=== PATIENT | female | born 1945 | race Caucasian/White ===

== ENCOUNTER → 2016-07-01 | Outpatient (CLI) | payer BC ==
[~2016-07-01] MED LIST: ASCO100T PO; CALC-348 PO; CHOL200010 PO; CRAN1TAB PO; FLV1; FSM70 PO; MAGN1CAP2 PO; MULTTAB58 PO
[2016-07-01 13:03] LABS: BLOOD UREA NITROGEN 25 mg/dl (7-18); BUN/CREATININE RATIO 33.5 (10-20); CALCIUM 9.2 mg/dl (8.5-10.1); CARBON DIOXIDE 30 mmol/L (21-32); CHLORIDE 104 mmol/L (98-107); CREATININE 0.76 mg/dl (0.60-1.20); GLUCOSE 95 mg/dl (70-99); POTASSIUM 3.8 mmol/L (3.5-5.1); SODIUM 141 mmol/L (136-145)
[2016-07-01 13:07] LABS: CHOLESTEROL 148 mg/dl (0-200); CHOLESTEROL/HDL RATIO 2.3; HDL CHOLESTEROL 64 mg/dl; LDL CHOLESTEROL CALCULATED 70 mg/dl; TRIGLYCERIDES 69 mg/dl (0-150); VERY LOW DENSITY LIPOPROT CALC 14 mg/dl
== END | disposition home or self-care (01) ==
LOC: C.LABPVFM 09:21
PROVIDERS: ATTEND Nurse Practitioner
DX: E78.00 Pure hypercholesterolemia, unspecified (principal); M81.0 Age-related osteoporosis without current pathological fracture

== ENCOUNTER → 2016-09-03 | Outpatient (CLI) | payer BC ==
[~2016-09-03] MED LIST changes: -ASCO100T PO; +ASCO100T4 PO
== END | disposition home or self-care (01) ==
LOC: C.LABPVFM 09:58
PROVIDERS: ATTEND Internal Medicine Rheumatology
DX: E55.9 Vitamin D deficiency, unspecified (principal); E61.8 Deficiency of other specified nutrient elements; M81.0 Age-related osteoporosis without current pathological fracture

== ENCOUNTER → 2016-09-11 | Outpatient (CLI) | payer BC | END | disposition home or self-care (01) | LOC: C.PAPS 10:59 | PROVIDERS: ATTEND Obstetrics & Gynecology | DX: Z12.4 Encounter for screening for malignant neoplasm of cervix (principal) ==

== ENCOUNTER → 2016-09-26 | Outpatient (CLI) | payer BC ==
--- NOTE | 2016-09-26 13:07 | MAMMOGRAPHY REPORT ---
BILATERAL DIGITAL SCREENING MAMMOGRAM WITH CAD: 09/26/2016 CLINICAL HISTORY: Routine screening. Patient has no complaints. TECHNIQUE: Current study was also evaluated with a Computer Aided Detection (CAD) system. Bilatera l CC and MLO views were obtained. COMPARISON: Comparison is made to exams dated: 09/25/2015 mammogram, 09/19/2014 mammogram, 09/15/2013 m ammogram, 08/27/2012 mammogram, 08/27/2011 mammogram, and 08/24/2010 mammogram - [facility]. BREAST COMPOSITION: There are scattered areas of fibroglandular density in both breasts. FINDINGS: No suspicious masses, calcifications, or areas of architectural distortion are noted in e ither breast. There has been no significant interval change compared to prior exams. IMPRESSION: ACR BI-RADS CATEGORY 1: NEGATIVE There is no mammographic evidence of malignancy. A 1 year screening mammogram is recommended. The p atient will receive written notification of the results. Approximately 10% of breast cancers are not detected with mammography. A negative mammographic repor t should not delay biopsy if a clinically suggestive mass is present. Mercedes Mcarthur M.D. ah/:09/26/2016 12:14:55 Air Chief Marshal: Danielle LIM(R)(M), [facility] letter sent: Normal 1/2 BI-RADS Code: ACR BI-RADS Category 1: Negative
== END | disposition home or self-care (01) ==
LOC: C.MAMM 09:09
PROVIDERS: ATTEND Obstetrics & Gynecology
DX: Z12.31 Encounter for screening mammogram for malignant neoplasm of breast (principal)

== ENCOUNTER → 2017-07-01 | Outpatient (CLI) | payer BC ==
[2017-07-01 12:35] LABS: BASO % 0.7 %; BASO ABS # 0.03 K/uL (0-0.2); EOS % 5.6 %; EOS ABS # 0.24 K/uL (0-0.5); HEMATOCRIT 40.1 % (37-47); HEMOGLOBIN 13.7 g/dL (12.0-16.0); LYMPH % 27.6 %; LYMPH ABS # 1.19 K/uL (1.2-3.4); MEAN CELL VOLUME 89.5 fL (80-100); MEAN CORPUSCULAR HEMOGLOBIN 30.6 pg (25-34); MEAN CORPUSCULAR HGB CONC 34.2 g/dl (32-36); MEAN PLATELET VOLUME 11.2 fL (7.4-10.4); MONO % 9.3 %; NEUT % 56.8 %; NEUT ABS # 2.45 K/uL (1.4-6.5); PLATELET COUNT 212 K/uL (130-400); RED CELL DISTRIBUTION WIDTH CV 13.1 % (11.5-14.5); WHITE BLOOD COUNT 4.31 K/uL (4.8-10.8)
[2017-07-01 14:36] LABS: BLOOD UREA NITROGEN 19 mg/dl (7-18); CALCIUM 9.3 mg/dl (8.5-10.1); CARBON DIOXIDE 29 mmol/L (21-32); CREATININE 0.79 mg/dl (0.60-1.20); GLUCOSE 99 mg/dl (70-99); SODIUM 138 mmol/L (136-145)
[2017-07-01 14:39] LABS: CHOLESTEROL 163 mg/dl (0-200); LDL CHOLESTEROL CALCULATED 88 mg/dl
== END | disposition home or self-care (01) ==
LOC: C.LABPVFM 07:53
PROVIDERS: ATTEND Nurse Practitioner
DX: D70.9 Neutropenia, unspecified (principal); E78.00 Pure hypercholesterolemia, unspecified; M81.0 Age-related osteoporosis without current pathological fracture

== ENCOUNTER → 2017-09-30 | Outpatient (CLI) | payer BC ==
--- NOTE | 2017-10-01 14:21 | MAMMOGRAPHY REPORT ---
BILATERAL DIGITAL SCREENING MAMMOGRAM TOMOSYNTHESIS WITH CAD: 09/30/2017 CLINICAL HISTORY: Routine screening. Patient has no complaints. TECHNIQUE: Breast tomosynthesis in addition to standard 2D mammography was performed. Current study was also evaluated with a Computer Aided Detection (CAD) system. COMPARISON: Comparison is made to exams dated: 09/26/2016 mammogram, 09/25/2015 mammogram, 09/19/2014 m ammogram, 09/15/2013 mammogram, 08/27/2012 mammogram, and 08/27/2011 mammogram - [facility]. BREAST COMPOSITION: There are scattered areas of fibroglandular density in both breasts. FINDINGS: There is stable focal asymmetry in the upper outer middle one third of the left breast. No suspicious mass, architectural distortion or cluster of microcalcifications is seen. IMPRESSION: ACR BI-RADS CATEGORY 1: NEGATIVE There is no mammographic evidence of malignancy. A 1 year screening mammogram is recommended. The pa tient will receive written notification of the results. Approximately 10% of breast cancers are not detected with mammography. A negative mammographic report should not delay biopsy if a clinically suggestive mass is present. Ella Mc M.D. ay/:09/30/2017 16:58:44 Product Info Specialist: Monse LIM(Ashu)(Alisha), [facility] letter sent: Normal 1/2 BI-RADS Code: ACR BI-RADS Category 1: Negative
== END | disposition home or self-care (01) ==
LOC: C.MAMM 10:10
PROVIDERS: ATTEND Nurse Practitioner
DX: Z12.31 Encounter for screening mammogram for malignant neoplasm of breast (principal)

== ENCOUNTER → 2017-09-30 | Outpatient (CLI) | payer BC | LOC: C.MAMM 10:09 | PROVIDERS: ATTEND Internal Medicine Rheumatology | DX: M81.0 Age-related osteoporosis without current pathological fracture (principal); M85.851 Other specified disorders of bone density and structure, right thigh; M85.852 Other specified disorders of bone density and structure, left thigh; E61.8 Deficiency of other specified nutrient elements; E55.9 Vitamin D deficiency, unspecified ==

== ENCOUNTER → 2017-12-29 | Outpatient (CLI) | payer BC ==
[2017-12-29 13:15] LABS: BLOOD UREA NITROGEN 20 mg/dl (7-18); CALCIUM 9.1 mg/dl (8.5-10.1); CARBON DIOXIDE 30 mmol/L (21-32); CREATININE 0.83 mg/dl (0.60-1.20); GLUCOSE 94 mg/dl (70-99); POTASSIUM 4.1 mmol/L (3.5-5.1); SODIUM 140 mmol/L (136-145)
== END | disposition home or self-care (01) ==
LOC: C.LABPVFM 09:35
PROVIDERS: ATTEND Nurse Practitioner
DX: E78.00 Pure hypercholesterolemia, unspecified (principal); M81.0 Age-related osteoporosis without current pathological fracture

== ENCOUNTER 2021-10-23 06:09 | Observation (INO) ==
--- NOTE | 2021-09-20 09:43 | PAT Medication Instructions ---
Medication Instructions Date of Service September 20, 2021 Home Medications Medication Instructions Recorded atorvastatin 10 mg tablet See Rx Instructions .ROUTE 03/29/21 .COMPLEX #90 tablet diclofenac sodium 1 % topical gel 1 g TOPICAL QID PRN #100 g 06/28/21 alendronate 70 mg tablet (Fosamax) 70 mg PO .COMPLEX #90 tab 07/12/21 ascorbic acid (vitamin C) 500 mg tablet 500 mg PO BID cholecalciferol (vitamin D3) 50 mcg (2,000 unit) tablet 2,000 units PO TID calcium carbonate 600 mg calcium (1,500 mg) tablet (Calcium) 600 mg PO BID atorvastatin 10 mg tablet See Rx Instructions .ROUTE .COMPLEX diclofenac sodium 1 % topical gel 1 g TOPICAL QID PRN alendronate 70 mg tablet (Fosamax) 70 mg PO .COMPLEX Continue as directed atorvastatin 10 mg tablet See Rx Instructions .ROUTE .COMPLEX alendronate 70 mg tablet (Fosamax) 70 mg PO .COMPLEX (do not take day of surgery) STOP taking 24 hours before surgery diclofenac sodium 1 % topical gel 1 g TOPICAL QID PRN DO NOT take the morning of surgery ascorbic acid (vitamin C) 500 mg tablet 500 mg PO BID cholecalciferol (vitamin D3) 50 mcg (2,000 unit) tablet 2,000 units PO TID calcium carbonate 600 mg calcium (1,500 mg) tablet (Calcium) 600 mg PO BID Take evening before surgery ascorbic acid (vitamin C) 500 mg tablet 500 mg PO BID cholecalciferol (vitamin D3) 50 mcg (2,000 unit) tablet 2,000 units PO TID calcium carbonate 600 mg calcium (1,500 mg) tablet (Calcium) 600 mg PO BID Other Notes NOTHING TO EAT OR DRINK AFTER MIDNIGHT. If you have any questions please call us at [phone] or [phone] or [phone] or [phone]
--- NOTE | 2021-09-24 09:58 | Anesthesiology Consultation ---
Date of Service September 24, 2021 Assessment & Plan (1) Encounter for pre-operative examination: - Patient acceptable risk for surgery pending surgeon-ordered PCP preop evaluation ([facility]; 09/27). - COVID screening: Per assessment on 09/24: No known COVID-19 positive contacts or current COVID-19 related symptoms. Travel screen negative. Patient vaccinated. Surgeon arranging preop COVID testing. Awaiting results. Chart Review Chart Review: Patient seen in Pre Admission Testing History Surgery Operation Date: 10/23/21 08:10 Proposed Procedures p Right Total Knee Arthroplasty - Matthew Smith DO Height/Weight Height: 5 ft 5 in Weight: 64.4 kg Allergies Allergy/AdvReac Type Severity Reaction Status Date / Time codeine AdvReac Intermediate Flu-like Verified 09/24/21 09:56 reaction aspirin AdvReac Mild Nose bleed Verified 09/24/21 09:56 Medications Home Medications Medication Instructions Recorded Confirmed Last Taken ascorbic acid (vitamin C) 500 mg 500 mg PO BID tab 12/31/18 09/19/21 07/17/21 tablet cholecalciferol (vitamin D3) 50 2,000 units PO TID 02/17/19 09/19/21 07/17/21 mcg (2,000 unit) tablet calcium carbonate 600 mg calcium 600 mg PO BID tab 02/06/21 09/19/21 07/17/21 (1,500 mg) tablet (Calcium) atorvastatin 10 mg tablet See Rx Instructions .ROUTE 03/29/21 09/19/21 07/17/21 .COMPLEX #90 tablet diclofenac sodium 1 % topical gel 1 g TOPICAL QID PRN #100 g 06/28/21 09/19/21 Unknown alendronate 70 mg tablet (Fosamax) 70 mg PO .COMPLEX #90 tab 07/12/21 09/19/21 07/17/21 Past Medical History Medical History High cholesterol Borderline History of anxiety Migraine Osteoporosis Restless leg syndrome Exercise / Class Metabolic Activity II 4-5 Yardwork/Stairs/Walk up hill (one FS (no CP, no SOB)) Past Family History Family History Sister Colorectal cancer Other Breast cancer Coronary heart disease Lymphoma No family history of adverse response to anesthesia Denies family history of Ovarian cancer Prostate cancer Myocardial infarction Past Surgical History Surgical History H/O colonoscopy with polypectomy History of bilateral tubal ligation History of bunionectomy RT FOOT History of cataract surgery RT/LEFT History of gynecologic surgery UTERINE SEPTUM REPAIR (Congenital uterine didelphys) Nausea and vomiting after administration of anesthetic agent [place] teeth extracted Past Anesthesia History No Hx of Anesthesia Complications (except post-op nausea x1 remote episode) and No Family Hx of Anesthesia Complications History of PONV No Hx of Motion Sickness and History of PONV (single episode of post-op nausea with tubal) Social History Smoking Status: Never smoker Do You Dip or Chew Tobacco: No Hx Alcohol Use: Yes Alcohol type: wine alcohol intake frequency: holidays/special occasions only substance use type: does not use Review of Systems Patient denies chest pain, shortness of breath, dyspnea on exertion, fever, chills, cough, wheezing, palpitations. Physical Exam Vital Signs VITALS BP 133/79 P 71 TEMP 98. SP02 97%RA RESP 16 PHYSICAL Full cervical extension range of motion. Full TMJ range of motion. TMD 3 finger breaths Mallampati Score 1 Dentition: intact, +caps/crowns (several) Lungs: clear throughout to auscultation Cardiac: regular rate and rhythm, no murmurs noted Spine: normal Carotid arteries: negative bruit Extremities: no edema Lab Results Anesthesia Preop Results Results Anesthesia Widget: WBC 6.77 K/uL (4.8-10.8) 09/24/21 Hgb 14.2 g/dL (12.0-16.0) 09/24/21 Hct 42.7 % (37-47) 09/24/21 Plt 259 K/uL (130-400) 09/24/21 Na 139 mmol/L (136-145) 09/24/21 K 4.2 mmol/L (3.5-5.1) 09/24/21 Cl 101 mmol/L (98-107) 09/24/21 CO2 31 mmol/L (21-32) 09/24/21 BUN 24 mg/dl (6-23) H 09/24/21 Creat 0.80 mg/dl (0.6-1.2) 09/24/21 Glucose Level 103 mg/dl (70-99(Fasting)) H 09/24/21 PT 10.1 Seconds (9.0-12.0) 09/24/21 PTT 27.0 Seconds (21.0-31.0) 09/24/21 INR 0.9 (0.9-1.1) 09/24/21 HA1c 5.7 % (4.5-5.6) H 09/24/21 Urine Color Yellow 09/24/21 Urine Appearance Clear (Clear) 09/24/21 Urine pH 6.5 (4.5-7.5) 09/24/21 Urine Specific [place] 1.011 (1.000-1.030) 09/24/21 Urine Protein Negative (Negative) 09/24/21 Urine Glucose (UA) Negative (Negative) 09/24/21 Urine Ketones Negative (Negative) 09/24/21 Urine Blood Negative (Negative) 09/24/21 Urine Nitrite Negative (Negative) 09/24/21 Urine Bilirubin Negative (Negative) 09/24/21 Urine Urobilinogen Negative (Negative) 09/24/21 Urine Leukocyte Esterase Trace (Negative) H 09/24/21 Urine WBC (Auto) 1-5 /hpf (0-5) 09/24/21 Urine RBC (Auto) 0-4 /hpf (0-4) 09/24/21 Urine Hyaline Casts (Auto) 0 /lpf (0-5) 09/24/21 Urine Epithelial Cells (Auto) 0-5 /lpf (0-5) 09/24/21 Urine Bacteria (Auto) 1+ (Negative) H 09/24/21 Blood Type O Positive 09/24/21 Antibody Screen NEGATIVE 09/24/21 Testing Laboratory Results Surgeon's office made aware of abnormal UA* Electrocardiogram Date: 09/24/21 Findings: + SB @ (58) Chest X-Ray Date: 09/24/21 Findings: + NAD
--- NOTE | 2021-09-24 13:28 | History & Physical Report ---
Date of Service September 24, 2021 date of surgery: 10/23/21 Procedure: Right Total Knee Arthroplasty Surgeon: Matthew Smith Assessment & Plan (1) Arthritis of right knee: Plan: Risks and benefits of procedure discussed in detail today, patient would like to proceed with a Right total knee replacement at [facility] as scheduled. will obtain medical clearance prior to surgery as well as obtain PATs at [facility]. Will place on ASA 81mg po bid x 1 month post op, f/u 2 weeks post op for routine post-operative care and x-ray, sooner if having any problems. will make arrangements for HHPT at the time of discharge. At this point in time, has failed conservative measures and would like to proceed with surgical intervention. The risks and benefits have been discussed including, but not limited to, risk of infection, nerve injury, stiffness, loss of motion, failure to improve, etc. Reasonable outcomes and options of treatment were discussed. An explanation of appropriate alternatives to the procedure that may be advantageous were discussed and their risks and benefits, as well as the risks and benefits of not proceeding with treatment. I offered to answer any additional inquiries concerning the treatment involved. All the patient's questions were answered. The patient is agreeable, understanding of the treatment plan and alternatives, and wishes to proceed with the treatment plan. History of Present Illness Chief Complaint: Right knee pain Primary Care Provider: NIKIA Shelby Fely is a 76 year old female who complains of right knee pain, presents for pre-op evaluation prior to a right total knee replacement by Dr Smith at [facility]. she complains of pain, decreased range of motion, instability and stiffness in her right knee. Currently the patient states that the symptoms are moderate- severe and is described as aching, sharp and throbbing. Her symptoms are aggravated by ascending stairs, daily activities, first steps while awake walking. Prior NSAIDs include IBU and Aleve, and prior pain medications include Tylenol. she has been treated with previous cortisone injections in the past without much relief, she states 4-5 injections in the past. Allergies Allergy/AdvReac Type Severity Reaction Status Date / Time codeine AdvReac Intermediate Flu-like Verified 09/24/21 09:56 reaction aspirin AdvReac Mild Nose bleed Verified 09/24/21 09:56 Home Medications Medication Instructions Recorded Confirmed Type ascorbic acid (vitamin C) 500 mg 500 mg PO BID tab 12/31/18 09/19/21 History tablet cholecalciferol (vitamin D3) 50 2,000 units PO TID 02/17/19 09/19/21 History mcg (2,000 unit) tablet calcium carbonate 600 mg calcium 600 mg PO BID tab 02/06/21 09/19/21 History (1,500 mg) tablet (Calcium) atorvastatin 10 mg tablet See Rx Instructions .ROUTE 03/29/21 09/19/21 Rx .COMPLEX #90 tablet diclofenac sodium 1 % topical gel 1 g TOPICAL QID PRN #100 g 06/28/21 09/19/21 Rx alendronate 70 mg tablet (Fosamax) 70 mg PO .COMPLEX #90 tab 07/12/21 09/19/21 Rx Past Med/Surg History Medical History High cholesterol Borderline History of anxiety Migraine Osteoporosis Restless leg syndrome Surgical History H/O colonoscopy with polypectomy History of bilateral tubal ligation History of bunionectomy RT FOOT History of cataract surgery RT/LEFT History of gynecologic surgery UTERINE SEPTUM REPAIR (Congenital uterine didelphys) Nausea and vomiting after administration of anesthetic agent [place] teeth extracted Family History Sister Colorectal cancer Other Breast cancer Coronary heart disease Lymphoma No family history of adverse response to anesthesia Denies family history of Ovarian cancer Prostate cancer Myocardial infarction Social History Smoking Status: Never smoker Second Hand Exposure: No; Hx Alcohol Use: Yes Alcohol type: wine Preferred Language: Cypriot Communication Ability: Effective Identity Access Management Architect Required: No Beliefs That Will Affect Care: None marital status: Current Living Situation: Alone current occupational status: retired How many Children do You have: 1 Feels Safe at Home: Yes Childhood Exposure to Second-Hand Smoke: No caffeine: Yes during the past year weight has: remained stable Dental Care, Regularly: Yes Physical Activity Frequency: Daily Seatbelt Use: always Sunscreen Use: Yes (sometimes) Assistive Devices: Glasses Review of Systems Review of Systems: All systems reviewed & are unremarkable except as noted in HPI & below Constitutional: no fever, no chills and no sweats Respiratory: no cough and no dyspnea Cardiovascular: no chest pain, no dyspnea and no orthopnea Gastrointestinal: no abdominal pain, no nausea and no vomiting Musculoskeletal: as per Subjective / HPI Physical Exam Physical Exam: HT: 5ft 5in WT: 64.4kg BP: 120/62 Constitutional: WD/WN, vitals as above no acute distress Respiratory: normal respiratory effort, lungs clear to auscultation no respiratory distress, no labored breathing and does not use accessory muscles Cardiovascular: RRR, no murmur, no edema Gastrointestinal (Abdomen): normal bowel sounds, soft, nontender, no hepatosplenomegaly Musculoskeletal: Knee: + knee abnormal to inspection (RIGHT KNEE: ), + effusion (+1 effusion), + limited ROM of knee (ROM 0/3/110), + knee ROM with crepitation, + joint line tenderness (medial joint line) and + Jimmie's sign positive; no deformity, no skin erythema, no ecchymosis, no valgus laxity, no varus laxity, anterior drawer test negative, Boris's sign negative and pivot shift test negative Results & Data Results & Data ([facility]) Diagnostic Findings Right Knee X-ray: Right knee series showing advanced degenerative changes to the right knee, Tricompartment narrowing with spurring noted, findings showing joint space narrowing, osteophyte formation and subchondral sclerosis noted. no acute bony pathology noted.
[~2021-10-23 06:09] MED LIST changes: +ACETAMINOPHEN 500 MG TAB PO SCH; -ASCO100T4 PO; -CALC-348 PO; -CHOL200010 PO; -CRAN1TAB PO; +CeleBREX 200 MG CAP PO SCH; +FAMOTIDINE 20 MG TAB PO SCH; -FLV1; -FSM70 PO; +GABAPENTIN 300 MG CAP PO SCH; +LR 500ML BOLUS, THEN 15ML/HR IV SCH; -MAGN1CAP2 PO; +METOCLOPRAMIDE HCL 10 MG TABLET PO SCH; -MULTTAB58 PO; +ROPIVACAINE 0.5% HCL/PF 150 MG, BUPIVACAINE 0.75% MPF 20 ML, EPINEPHrine 30MG/30ML (OR ... INFIL SCH; +TRANEXAMIC ACID 1,000 MG **IV Intra-op IV SCH; +TRANEXAMIC ACID 1,000 MG **IV Pre-op IV SCH; +ceFAZolin 2000MG 2,000 MG/15 ML SYR IV SCH; +dexAMETHasone 4 MG TAB PO SCH
[2021-10-23] MEDS ORDERED: BUPIVACAINE 0.5 % 5 MG/1 ML PF 10ML VIAL ONE (06:31)
[2021-10-23] MEDS ORDERED: ROPIVACAINE 0.5% 5 MG/ML 30 ML VIAL ONE (06:31)
--- NOTE | 2021-10-23 07:39 | History & Physical Bridge Note ---
Date of Service October 23, 2021 History & Physical Bridge Note I have examined the patient, reviewed the History & Physical and in the interval since the performance of the History & Physical I have noted the following changes of clinical significance: no changes noted
[2021-10-23] MEDS ORDERED: MIDAZOLAM HCL 1 MG/ML 2ML VIAL ONE (08:04)
[2021-10-23] MEDS ORDERED: fentaNYL citrate 100 MCG/2 ML VIAL ONE (08:04)
[2021-10-23] MEDS ORDERED: PROPOFOL IV EMULSION 10 MG/ML 20 ML VIAL IV ONE ×2 (08:04→08:09)
[2021-10-23] MEDS ORDERED: ATROPINE SULFATE 0.1 MG/ML 10ML SYR IV PRN (08:48)
[2021-10-23] MEDS ORDERED: ONDANSETRON INJ 2 MG/ML 2 ML VIAL IV PRN ×2 (08:48→13:14)
[2021-10-23] MEDS ORDERED: PROMETHAZINE HCL 12.5 MG in SODIUM CHLORIDE 0.9% 50 ML IV PRN (08:48)
[2021-10-23] MEDS ORDERED: fentaNYL citrate 100 MCG/2 ML VIAL IV PRN (08:48)
[2021-10-23] MEDS ORDERED: HYDROmorphone INJ 2 MG/ML SYR/VIAL IV PRN (08:48)
[2021-10-23] MEDS ORDERED: ePHEDrine sulfate 50 MG/ML AMP IV PRN (08:48)
[2021-10-23] MEDS ORDERED: ORTHO JOINT ANESTHETIC ONE (09:28)
[2021-10-23] MEDS ORDERED: ePHEDrine sulfate 50 MG/ML SYR ONE (09:59)
--- NOTE | 2021-10-23 10:43 | Operative Report ---
Post Operative Report Pre & Post Diagnosis Operation Date: 10/23/21 09:15 Pre-Op Diagnosis: Right Knee Osteoarthritis Post-Op Diagnosis: Right Knee Osteoarthritis I identified the patient and participated in the time-out.: Yes Procedure Utilizing [employer] journey 2 patient matched total knee arthroplasty size femur 5 tibia 4 polytwelve patella 29 oval Operation Date: 10/23/21 09:15 <No data on this case meets the specified criteria> Surgeon Matthew Smith DO Genetic Technologist MADELYN Rahman Estimated Blood Loss 5 Findings Consistent with Post-Op Diagnosis Patient presents with severe end-stage tricompartmental degenerative joint disease right knee no response to conservative management patient had eburnated [id number] marginal osteophytes subchondral sclerosis subchondral cystic changes moderate to large effusion Specimens Bone and cartilage Drains Medium bore Hemovac Anesthesia Type MAC Spinal Regional Complications none Disposition Accompanied Patient To Recovery: No Disposition: Recovery Room Indications Patient presents today with severe end-stage tricompartmental degenerative joint disease right knee after failed attempted conservative management occluding physical therapy anti-inflammatories relative rest activity modification corticosteroid injection viscosupplementation above intraoperative findings were noted. Description of Procedure After proper prepping and draping of the Right lower extremity anterior midline incision was made over the region of the extensor extensor mechanism after meticulous hemostasis was obtained and maintained in subcutaneous tissues a medial parapatellar incision was made The patella was subluxed lateralward the medial lateral gutter were cleaned from any hypertrophic synovitis and scar tissue of the distal femoral block was placed and the distal femoral osteotomy cut was made subsequently the chamfers anterior and posterior osteotomy cuts were made utilizing the 4-in-1 block the tibia was subsequently subluxed anteriorward medial and ateral meniscal remnants were excised in their entirety remnants of the anterior and posterior cruciate ligaments were excised in their entirety excellent exposure of the proximal tibia was obtained the tibial osteotomy guide was placed on the proximal tibial osteotomy cut was made once again the knee was irrigated with copious amounts of sterile saline solution the patella was subsequently everted lateralward thickened scar tissue around the patella was removed the patella was subsequently cut utilizing a freehand technique and was drilled prepared for final preparation and placement of patella socially flexion-extension gaps were checked and the equal and symmetric trials were placed to the appropriate femoral and tibial trials with poly-spacer being placed for equal flexion and extension gaps and full range of motion including extension to 0 and flexion to 140 the trial components after having been taken to recovery range of motion was subsequently removed meticulous hemostasis was obtained and maintained subsequently a knee block injection of joint cocktail including ropivacaine 0.5% 150 mg. Bupivacaine 0.5% epinephrine 1-200,030 mL's toradol 30 mg dexamethasone 4 mg ketamine 10 mg clonidine 100 micrograms normal saline solution 30 mg was infiltrated into the soft tissues of the posterior knee medial lateral gutters and periosteal synovium special attention was paid to protect neurovascular structures at all times subsequently trial components having been removed the knee was irrigated with sterile saline solution. debris was removed the proximal tibia was subsequently prepared and was made ready for the placement of the tibial component tibial component was also cemented and tamped into position the femoral component was subsequently placed and cemented in the position the patellar component was subsequently cemented in position because hemostasis once again obtained and maintained wound having been thoroughly irrigated with debridement and debridement lavage was performed as well as a medial parapatellar incision closed with #1 Vicryl in interrupted fashion subcutaneous was closed with #2 Vicryl skin was closed with skin clips. PA-C was necessary for prepping and drapping as well as wound closure of deep fascia Sub cutaneous tissue and skin and was necessary for the case. A sterile compressive dressing was placed patient was taken to recovery in stable condition of report dictated by Luis I attest to the content of the Intraoperative Record and any orders documented therein. Any exceptions are noted below.Due to the complex nature of the procedure, the entire surgery was performed with the operational assistance of MADELYN Rahman. The data control assistant, under direct supervision, was involved in the actual performance of all aspects of the surgical procedure including hemostasis, tissue retraction and incision, instrument management, patient positioning, and wound closure. I attest to the content of the Intraoperative Record and any orders documented therein. Any exceptions are noted below.
--- NOTE | 2021-10-23 11:41 | XRay Report ---
XR knee RT 1 or 2V routine CLINICAL HISTORY: Surgical Post Op TECHNIQUE: 2 views of the right knee were obtained. Comparison: None available at the time of this dictation. FINDINGS: Patient is status post total knee arthroplasty with expected postsurgical changes including soft tiss ue swelling, subcutaneous emphysema. No periarticular lucency or hardware fracture is seen. IMPRESSION: Expected postoperative appearance status post placement of total knee arthroplasty. ACT 112: Negative or not required by law. Electronically signed by: Chace Strauss M.D. 10/23/2021 11:40 AM
--- NOTE | 2021-10-23 12:00 | Anesthesiology Progress Note ---
Date of Service October 23, 2021 Anesthesia Post Procedure Vital Signs Vital Signs: Temp Pulse Pulse Resp BP Pulse Ox 10/23/21 11:50 67 22 125/70 94 10/23/21 11:40 67 19 121/74 94 10/23/21 11:30 75 16 114/71 98 10/23/21 11:21 36.1 C L 81 17 109/65 98 10/23/21 06:49 36.7 C 65 20 126/74 20 L Transfer of Care Handoff Completed per policy Notes Mental Status: alert / awake / arousable and participated in evaluation Patient Amnestic to Procedure: Yes Nausea / Vomiting: adequately controlled Pain: adequately controlled Airway Patency, RR, SpO2: stable & adequate BP & HR: stable & adequate Hydration State: stable & adequate Neuraxial Anesthesia: was administered and sensory block is resolving Anesthetic Complications: no major complications apparent
[2021-10-23] MEDS ORDERED: MAGNESIUM HYDROXIDE SUSP 30 ML UDC PO PRN (13:14)
[2021-10-23] MEDS ORDERED: HYDROmorphone INJ 1 MG/ML SYRINGE IV PRN (13:14)
[2021-10-23] MEDS ORDERED: bisacodyL 10 MG SUPP PR PRN (13:14)
[2021-10-23] MEDS ORDERED: SODIUM CHLORIDE 0.9% 1000ML 1,000 ML IV SCH (13:14)
[2021-10-23] MEDS ORDERED: oxyCODONE HCL IR 5 MG TAB (IMMEDIATE RELEASE) PO PRN (13:14)
[2021-10-23] MEDS ORDERED: METOCLOPRAMIDE HCL INJ 5 MG/ML 2 ML VIAL IV PRN (13:14)
[2021-10-23] MEDS ORDERED: diphenhydrAMINE Capsule 25 MG CAP PO PRN (13:14)
[2021-10-23] MEDS ORDERED: NALOXONE HCL 0.4 MG/1 ML VIAL/CARP IV PRN (13:14)
--- NOTE | 2021-10-23 13:44 | Hospitalist Consultation ---
Date of Consultation October 23, 2021 Assessment & Plan (1) Status post total knee replacement: POD #0 elective right knee TKA Pain and VTE management per orthopedics (2) Osteoporosis: Resume alendronate when ok from surgical perspective Continue vitamin D and calcium supplementation (3) Hypercholesterolemia: Continue atorvastatin 10mg PO daily VTE Prophylaxis - deferred to surgery, taking Xarelto 10mg PO daily starting 10/24 Diet - Regular Disposition - thank you for the consult, we will review labs in AM and can likely sign off at that time History of Present Illness Reason for Consultation: Post op management Attending Physician: Matthew Smith DO History of Present Illness Fely Estevez is a 76 year old female admission for elective right total knee arthroplasty performed today by Dr Smith. Estimated blood loss 5ml. She reports donig well post operatively and is not in any pain although has also not been out of bed yet. She reports recent history of UTI 2-3 weeks ago which was treated with Bactrim. ?caused rash behind left knee which has cleared up with hydrocortisone. Symptoms all now resolved. She takes atorvastatin for hyperlipidemia - no history of stroke of heart attacks in the past. She takes alendronate, calcium and vitamin D supplementations for osteoporosis. Allergies Allergy/AdvReac Type Severity Reaction Status Date / Time codeine AdvReac Intermediate Flu-like Verified 10/23/21 06:56 reaction aspirin AdvReac Mild Nose bleed Verified 10/23/21 06:56 Home Medications Medication Instructions Recorded Confirmed Type ascorbic acid (vitamin C) 500 mg 500 mg PO BID tab 12/31/18 10/23/21 History tablet cholecalciferol (vitamin D3) 50 2,000 units PO TID 02/17/19 10/23/21 History mcg (2,000 unit) tablet calcium carbonate 600 mg calcium 600 mg PO BID tab 02/06/21 10/23/21 History (1,500 mg) tablet (Calcium) atorvastatin 10 mg tablet See Rx Instructions .ROUTE 03/29/21 10/23/21 Rx .COMPLEX #90 tablet diclofenac sodium 1 % topical gel 1 g TOPICAL QID PRN #100 g 06/28/21 10/23/21 Rx alendronate 70 mg tablet (Fosamax) 70 mg PO .COMPLEX #90 tab 07/12/21 10/23/21 Rx sulfamethoxazole 800 1 tab PO BID #14 tab 09/27/21 10/23/21 Rx mg-trimethoprim 160 mg tablet (Bactrim DS) triamcinolone acetonide 0.5 % 1 applic TOPICAL BID #15 g 09/27/21 10/23/21 Rx topical cream Patient History Medical History High cholesterol History of anxiety Migraine Osteoporosis Restless leg syndrome Surgical History H/O colonoscopy with polypectomy History of bilateral tubal ligation History of bunionectomy History of cataract surgery History of gynecologic surgery Nausea and vomiting after administration of anesthetic agent [place] teeth extracted Family History Sister Colorectal cancer Other Breast cancer Coronary heart disease Lymphoma No family history of adverse response to anesthesia Denies family history of Ovarian cancer Prostate cancer Myocardial infarction Social History Smoking Status: Never smoker Second Hand Exposure: No; Do You Dip or Chew Tobacco: No; Hx Alcohol Use: Yes Alcohol type: wine Preferred Language: Ukrainian Communication Ability: Effective Water Pipe Installer Required: No Beliefs That Will Affect Care: None marital status: Current Living Situation: Alone current occupational status: retired How many Children do You have: 1 Feels Safe at Home: Yes Safety Concerns: Feels Safe At This Time Childhood Exposure to Second-Hand Smoke: No caffeine: Yes during the past year weight has: remained stable Dental Care, Regularly: Yes Physical Activity Frequency: Daily Seatbelt Use: always Sunscreen Use: Yes (sometimes) Assistive Devices: Glasses Review of Systems Review of Systems: All systems reviewed & are unremarkable except as noted in Subjective Physical Exam Constitutional: WD/WN, vitals as above Eyes: + anicteric sclerae; normal pupil size ENMT: external ear and nose normal, oropharynx normal Neck: trachea midline, no thyromegaly Respiratory: normal respiratory effort, lungs clear to auscultation Cardiovascular: RRR, no murmur, no edema Gastrointestinal (Abdomen): normal bowel sounds, soft, nontender, no hepatosplenomegaly Musculoskeletal: Ankle/1st toe plantar/dorsiflexion 5/5 b/l equal Skin: no rashes, warm and dry Neurologic: moves all extremities and awake; not confused Motor/Sensory: no sensory deficit Psychiatric: A+Ox3, euthymic affect Results & Data Results & Data ([facility]) Vital Signs (Past 12 Hours) Vital Signs Temp Pulse Pulse Resp BP BP Pulse Ox 10/23/21 13:40 36.4 C L 92 H 18 118/74 96 10/23/21 13:10 36.4 C L 64 20 110/69 98 10/23/21 12:45 73 22 112/60 95 10/23/21 12:30 59 L 16 109/64 96 10/23/21 12:15 61 19 110/69 97 10/23/21 12:00 36.1 C L 68 20 105/75 97 10/23/21 11:50 67 22 125/70 94 10/23/21 11:40 67 19 121/74 94 10/23/21 11:30 75 16 114/71 98 10/23/21 11:21 36.1 C L 81 17 109/65 98 10/23/21 06:49 36.7 C 65 20 126/74 20 L PG Care Time/CCT Total # of Minutes Spent Total Time Spent with Patient: Total time spent is greater than 50% in coordination of care (as documented) at patient's floor/unit and/or counseling patient: Coding Level of Care Code 78714 Office/OBS Consult Lvl 3 Diagnoses Status post total knee replacement Z96.659 Osteoporosis M81.0 Osteoporosis type: age-related Presence of current pathological fracture: without current pathological fracture Hypercholesterolemia E78.00 (1) Osteoporosis Osteoporosis type: age-related Presence of current pathological fracture: without current pathological fracture Qualified Code(s): M81.0 - Age-related osteoporosis without current pathological fracture
[2021-10-23] MEDS: CHOLECALCIFEROL 1,000 UNITS 25 MCG TAB PO SCH ×2 (14:51→20:36)
[2021-10-23] MEDS: ACETAMINOPHEN 500 MG TAB PO SCH ×2 (14:51→20:35)
[2021-10-23] MEDS: ceFAZolin 1000MG 1,000 MG/7.5 ML SYR IV SCH (17:13)
[2021-10-23] MEDS: TRIAMCINOLONE ACET 0.5% CR 15 GM TUBE TOP SCH (20:31)
[2021-10-23] MEDS: DOCUSATE SODIUM 100 MG CAP PO SCH (20:36)
[2021-10-23] MEDS: CALCIUM CARBONATE 1250MG TAB PO SCH (20:36)
[2021-10-23] MEDS: ASCORBIC ACID 500 MG TAB PO SCH (20:36)
[2021-10-23] MEDS: SULFAMETHOXAZOLE/TRIMETHOPRIM DS 800/160MG TAB PO SCH (20:36)
[2021-10-23] MEDS ORDERED: SENNA 8.6 MG TAB PO SCH (21:00)
[2021-10-24] MEDS: ceFAZolin 1000MG 1,000 MG/7.5 ML SYR IV SCH (01:30)
[2021-10-24] MEDS: ACETAMINOPHEN 500 MG TAB PO SCH (05:50)
[2021-10-24 07:11] LABS: Hematocrit (blood only) 33.2 % (37-47); Hemoglobin 11.2 g/dL (12.0-16.0); Mean Corpuscular Hemoglobin 29.6 pg (25-34); Mean Corpuscular Hgb Conc 33.7 g/dL (32-36); Mean Corpuscular Volume 87.8 fL (80-100); Platelet Count 218 K/uL (130-400); RDW Coefficient of Variation 13.5 % (11.5-14.5); RDW Standard Deviation 43.3 fL (36.4-46.3); Red Blood Count 3.78 M/uL (4.2-5.4); White Blood Count 13.23 K/uL (4.8-10.8)
[2021-10-24 07:40] LABS: Calcium 8.8 mg/dl (8.5-10.1); Creatinine Clr Calc Pharmacy 49.7 ml/min; Est GFR (African American) 74.5 ml/min; Est GFR (Non-African American) 64.3 ml/min; Potassium 3.8 mmol/L (3.5-5.1)
[2021-10-24] MEDS: SULFAMETHOXAZOLE/TRIMETHOPRIM DS 800/160MG TAB PO SCH ×2 (08:49→08:54)
[2021-10-24] MEDS: CHOLECALCIFEROL 1,000 UNITS 25 MCG TAB PO SCH (08:49)
[2021-10-24] MEDS: DOCUSATE SODIUM 100 MG CAP PO SCH (08:49)
[2021-10-24] MEDS: ATORVASTATIN 10 MG TAB PO SCH ×2 (08:50→08:54)
[2021-10-24] MEDS: ASCORBIC ACID 500 MG TAB PO SCH (08:50)
[2021-10-24] MEDS: TRIAMCINOLONE ACET 0.5% CR 15 GM TUBE TOP SCH (08:50)
[2021-10-24] MEDS: CALCIUM CARBONATE 1250MG TAB PO SCH (08:50)
[2021-10-24] MEDS ORDERED: MULTIVITAMIN TAB PO SCH (09:00)
[2021-10-24] MEDS ORDERED: RIVAROXABAN 10 MG TABLET PO SCH (09:00)
--- NOTE | 2021-10-24 11:41 | Orthopedic Progress Note ---
Date of Service October 24, 2021 Assessment & Plan (1) History of total right knee replacement: Plan: POD #1 s/p Right TKA pt/ot dvt proph with KAVIN/SCD/ASA plan for d/c home with HHPT Admission and Anticipated Discharge Date Admission Date: October 23, 2021 Subjective POD #1 s/p Right TKA Review of Systems Constitutional: no fever, no chills and no sweats Respiratory: no cough and no dyspnea Cardiovascular: no chest pain and no dyspnea Gastrointestinal: no abdominal pain, no nausea and no vomiting Physical Exam Physical Exam: Vital Signs Temp Pulse Pulse Resp BP BP Pulse Ox 10/24/21 11:32 36.5 C 63 16 124/66 94 10/24/21 07:36 36.8 C 62 16 119/73 96 10/24/21 04:10 36.7 C 58 L 16 100/54 L 96 10/23/21 21:17 36.7 C 59 L 16 110/63 99 10/23/21 16:10 36.4 C L 72 20 114/67 96 10/23/21 15:10 35.2 C L 85 16 107/70 99 10/23/21 14:08 36.5 C 88 18 101/67 98 10/23/21 13:40 36.4 C L 92 H 18 118/74 96 10/23/21 13:10 36.4 C L 64 20 110/69 98 10/23/21 12:45 73 22 112/60 95 10/23/21 12:30 59 L 16 109/64 96 10/23/21 12:15 61 19 110/69 97 10/23/21 12:00 36.1 C L 68 20 105/75 97 10/23/21 11:50 67 22 125/70 94 Intake and Output 10/23/21 10/24/21 10/24/21 22:59 06:59 14:59 Intake Total 1000 / 2600 Output Total 650 / 1185 525 / 1185 Balance 350 / 1415 -525 / 1415 Intake: IV 1000 / 1200 Sodium Chlorid e 0.9% 1000ML 1, 1000 / 1000 000 ml @ 100 m ls/hr IV .Q10H JOHNNIE Rx#:[id number] Output: Urine 600 / 1000 400 / 1000 Drain Output 50 / 180 125 / 180 Right Knee Hem ovac 50 / 180 125 / 180 Constitutional: WD/WN, vitals as above Musculoskeletal: Right Leg: NVDI, calf SNT, negative agus sign. DP palpable, able to wiggle toes/ankle movement without difficulty. dressing clean dry and intact. Results & Data ([facility]) Vital Signs (Past 12 Hours) Vital Signs Temp Pulse Pulse Resp BP Pulse Ox 10/24/21 11:32 36.5 C 63 16 124/66 94 10/24/21 07:36 36.8 C 62 16 119/73 96 10/24/21 04:10 36.7 C 58 L 16 100/54 L 96 Laboratory Results Laboratory Results WBC 13.23 K/uL (4.8-10.8) H 10/24/21 06:51 RBC 3.78 M/uL (4.2-5.4) L 10/24/21 06:51 Hgb 11.2 g/dL (12.0-16.0) L 10/24/21 06:51 Hct 33.2 % (37-47) L 10/24/21 06:51 MCV 87.8 fL (80-100) 10/24/21 06:51 MCH 29.6 pg (25-34) 10/24/21 06:51 MCHC 33.7 g/dL (32-36) 10/24/21 06:51 RDW Std Deviation 43.3 fL (36.4-46.3) 10/24/21 06:51 RDW Coeff of Wendy 13.5 % (11.5-14.5) 10/24/21 06:51 Plt Count 218 K/uL (130-400) 10/24/21 06:51 MPV 10.0 fL (7.4-10.4) 10/24/21 06:51 Sodium 139 mmol/L (136-145) 10/24/21 06:51 Potassium 3.8 mmol/L (3.5-5.1) 10/24/21 06:51 Chloride 107 mmol/L (98-107) 10/24/21 06:51 Carbon Dioxide 25 mmol/L (21-32) 10/24/21 06:51 Anion Gap 7 (3-11) 10/24/21 06:51 BUN 15 mg/dl (6-23) 10/24/21 06:51 Creatinine 0.88 mg/dl (0.6-1.2) 10/24/21 06:51 Est Cr Clr Drug Dosing 49.7 ml/min 10/24/21 06:51 Est GFR ( Amer) 74.5 ml/min 10/24/21 06:51 Est GFR (Non-Af Amer) 64.3 ml/min 10/24/21 06:51 BUN/Creatinine Ratio 17.0 (10-20) 10/24/21 06:51 Glucose 109 mg/dl (70-99(Fasting)) H 10/24/21 06:51 Calcium 8.8 mg/dl (8.5-10.1) 10/24/21 06:51 SARS-CoV-2, RNA, NAAT NEGATIVE (NEGATIVE) 10/23/21 06:45 Impressions Knee X-Ray 10/23/21 11:28 XR knee RT 1 or 2V routine CLINICAL HISTORY: Surgical Post Op TECHNIQUE: 2 views of the right knee were obtained. Comparison: None available at the time of this dictation. FINDINGS: Patient is status post total knee arthroplasty with expected postsurgical changes including soft tissue swelling, subcutaneous emphysema. No periarticular lucency or hardware fracture is seen. IMPRESSION: Expected postoperative appearance status post placement of total knee arthroplasty. ACT 112: Negative or not required by law. Electronically signed by: Chace Strauss M.D. 10/23/2021 11:40 AM
--- NOTE | 2021-10-24 11:48 | Discharge Summary ---
Date of Service date of discharge: October 24, 2021 date of admission: 10-23-21 Admission HPI Per Admitting Provider Fely is a 76 year old female who complains of right knee pain, presents for pre-op evaluation prior to a right total knee replacement by Dr Smith at [facility]. she complains of pain, decreased range of motion, instability and stiffness in her right knee. Currently the patient states that the symptoms are moderate- severe and is described as aching, sharp and throbbing. Her symptoms are aggravated by ascending stairs, daily activities, first steps while awake walking. Prior NSAIDs include IBU and Aleve, and prior pain medications include Tylenol. she has been treated with previous cortisone injections in the past without much relief, she states 4-5 injections in the past. Principal Diagnosis right knee arthritis Discharge Exam Vital Signs Temp Pulse Pulse Resp BP BP Pulse Ox 10/24/21 11:32 36.5 C 63 16 124/66 94 10/24/21 07:36 36.8 C 62 16 119/73 96 10/24/21 04:10 36.7 C 58 L 16 100/54 L 96 10/23/21 21:17 36.7 C 59 L 16 110/63 99 10/23/21 16:10 36.4 C L 72 20 114/67 96 10/23/21 15:10 35.2 C L 85 16 107/70 99 10/23/21 14:08 36.5 C 88 18 101/67 98 10/23/21 13:40 36.4 C L 92 H 18 118/74 96 10/23/21 13:10 36.4 C L 64 20 110/69 98 10/23/21 12:45 73 22 112/60 95 10/23/21 12:30 59 L 16 109/64 96 10/23/21 12:15 61 19 110/69 97 10/23/21 12:00 36.1 C L 68 20 105/75 97 10/23/21 11:50 67 22 125/70 94 Intake and Output 10/23/21 10/24/21 10/24/21 22:59 06:59 14:59 Intake Total 1000 / 2600 Output Total 650 / 1185 525 / 1185 Balance 350 / 1415 -525 / 1415 Intake: IV 1000 / 1200 Sodium Chloride 0.9% 1000ML 1, 1000 / 1000 000 ml @ 100 mls/hr IV .Q10H JOHNNIE Rx#:[id number] Output: Urine 600 / 1000 400 / 1000 Drain Output 50 / 180 125 / 180 Right Knee Hemovac 50 / 180 125 / 180 Constitutional WD/WN, vitals as above no acute distress Musculoskeletal RIGHT KNEE: NVDI, calf SNT, negative agus sign. DP palpable, able to wiggle toes/ankle movement without difficulty. SOHA dressing clean dry and intact. Discharge Data Allergies Allergy/AdvReac Type Severity Reaction Status Date / Time codeine AdvReac Intermediate Flu-like Verified 10/23/21 06:56 reaction aspirin AdvReac Mild Nose bleed Verified 10/23/21 06:56 Consultations 10/18/21 13:53 Consult Hospitalist Routine Procedures Performed Operation Date: 10/23/21 09:15 Actual Procedures p Right Total Knee Arthroplasty(Right) - Matthew Smith DO Ordered Studies 10/23/21 05:00 US - OR guided needle placemen Routine Hospital Course (1) History of total right knee replacement: POD #1 s/p Right TKA pt/ot dvt proph with KAVIN/SCD/ASA plan for d/c home with HHPT Total Time Total Time Spent Total Time Spent (In Minutes): 20 Discharge Plan Discharge Items Patient Disposition: Home - Home Health Services Reason For Visit: Right Knee Osteoarthritis Discharge Diagnosis: RIGHT TOTAL KNEE REPLACEMENT Condition on Discharge: Good Activity: Per Instructions section Weightbearing Comment: WBAT WITH WALKER Non-emergency contact: Surgeon Call non-emergency contact if: you have any medication questions, your temperature is above 101, your wound has increased redness, your wound has increased drainage and your wound pain has increased Follow-up/Referrals: Geetha Rawls CRNP [Primary Care Provider] - Diet: Regular Addtl Attending Provider Instructions: ACTIVITY RECOMMENDATIONS: SELF CARE INSTRUCTIONS AFTER TOTAL KNEE REPLACEMENT A. You may need to continue a physical therapy program after discharge from the hospital. There are several options available to you. Your doctor will assist you in selecting the best one for you. 1. An out-patient facility 2 to 3 times a week for therapy or home therapy. 2. Continue working on all exercises taught to you in the hospital. Your goals should be to increase bending of your knee to 90 degrees and beyond and to fully straighten your knee. B. You may progress at your own pace from walking with a walker or crutches to a cane; then to no assistive devices. C. Make walking a part of your daily routine. Be up as much as comfortable with rest periods throughout the day. Rest with leg elevation is very important. Use the ice wrap frequently for the first 3-4 weeks. D. There are no restrictions on activities. You may ride in a car, shop, participate in health program analyst and all social activities. E. Wear the long elastic stockings (KAVIN hose) 20 hours a day for 2 weeks after surgery. They can be removed several times a day for laundering and for a bath. F. You may shower, no tub baths until cleared by your doctor. SPECIAL CARE INSTRUCTIONS: VERY IMPORTANT TO READ AND REVIEW A. There are a few signs you need to watch for after you are home. Call [facility] if you notice any of the followin. Increased severe knee pain. Some pain is expected especially when you exercise. 2. Increased swelling in your leg or knee; pain or swelling of the calf muscle in either lower leg. 3. Any fluid drainage from the incision. 4. Shortness of breath or chest pain. B. Please call [facility] at if you have any concerns or questions about your operation or recovery. The doctor or his nurse will return your call promptly. C. You must take antibiotics before dental work, bladder, bowel or other surgery. Your doctor will provide you with a permanent care to carry describing this precaution. IMPORTANT: * REMEMBER TO TAKE ASPIRIN, 81 MG, TWICE DAILY FOR 4 WEEKS UNLESS OTHERWISE DIRECTED. THIS IS YOUR BLOOD THINNER. * HIGH RISK PATIENTS MAY BE PRESCRIBED A STRONGER BLOOD THINNER. THIS WILL BE PROVIDED AT DISCHARGE. * CALL IF INCREASED PAIN, REDNESS, DRAINAGE OR FEVER GREATER THAT 101. * WEAR KAVIN HOSE 20 HOURS PER DAY FOR 2 WEEKS. *SOHA Dressing- This is a large suction dressing covering your incision. This will help pull any excess drainage from the wound and allow your incision to heal properly. You may shower with this if you can keep the unit outside of the shower. If any bleeding or leakage is noted please call your doctor's office. This will remain on your incision for 7 days and then should be removed. This can be done yourself or by the home nursing staff if applicable. The entire unit is disposable once removed. Once removed, keep incision clean and dry. If redness or drainage is noted, please call your surgeon. ONCE SOHA IS REMOVED, FOLLOW THESE INSTRUCTIONS: DERMABOND Prineo- This is a mesh tape dressing that is covered with glue. It should remain in place until the incision is properly healed, usually 10-14 days. This dressing is designed to naturally slough off. You may trim the excess mesh tape as it peels off. Incision may be briefly wet in a shower. Dry immediately by blotting with a clean, dry towel. Do not bath or swim until instructed by your doctor. Do not scratch, rub, or pick at the dressing. Do not apply any topical ointments or lotions until dressing is completely removed and/or instructed by your doctor. There may be a small piece of suture material at one end of your incision. Do not pull or trim this. If it is bothersome or catching on clothing, you may cover it with a band-aid. IF INCISION IS LEAKING THROUGH DRESSING, CALL THE OFFICE . FOLLOW UP VISIT: If appointment is not already scheduled: Please call [facility] to make a follow-up appointment for 2 weeks after your surgery at . Pending Studies at Discharge: No Stand-Alone Forms: My [facility] Medications and DC Order Prescriptions: New acetaminophen [Tylenol Extra Strength] 500 mg Tablet 1,000 mg PO Q8 21 Days Qty: 126 RF: 0 oxycodone 5 mg Tablet 5 - 10 mg PO Q6H PRN (Reason: pain) Qty: 30 RF: 0 Xarelto 10 mg Tablet 10 mg PO DAILY 28 Days Qty: 28 RF: 0 docusate sodium 100 mg Capsule 100 mg PO BID 10 Days Qty: 20 RF: 0 cefadroxil 500 mg capsule 500 mg PO BID 14 Days Qty: 28 RF: 0 Continued atorvastatin 10 mg tablet See Rx Instructions .ROUTE .COMPLEX Qty: 90 RF: 3 alendronate [Fosamax] 70 mg tablet 70 mg PO .COMPLEX Qty: 90 RF: 3 sulfamethoxazole-trimethoprim [Bactrim DS] 800-160 mg tablet 1 tab PO BID Qty: 14 RF: 0 triamcinolone acetonide 0.5 % cream 1 applic topical BID Qty: 15 RF: 1 ascorbic acid (vitamin C) 500 mg tablet 500 mg PO BID RF: 0 cholecalciferol (vitamin D3) 2,000 unit tablet 2,000 units PO TID RF: 0 calcium carbonate [Calcium 600] 600 mg calcium (1,500 mg) tablet 600 mg PO BID RF: 0 Discontinued diclofenac sodium 1 % gel 1 g topical QID PRN (Reason: HIP PAIN) Qty: 100 RF: 4 Discharge Orders: Discharge Order (Routine); Ordered 10/24/21 Ordered By: Bryce Cuevas Admission Data Admit Date/Time: 10/23/21 11:28 Attending Provider: Matthew Smith Admit Provider: Matthew Smith Primary Care Provider: Geetha Rawls Other Providers: Jeremias Cross ; Bjorn Bennett. ; [facility],Home Health
--- NOTE | 2021-10-24 12:26 | Communication Note ---
Date of Service: October 24, 2021 Labs reviewed this morning and stable. WBC elevation from steroids. hgb dropped appropriately for EBL/blood loss and dilutional from IVF Patient's care discussed with nursing. Patient doing well, drain out this morning. No concerns for medical team. Planning for discharge today per orthopedics. Hospitalist signed off, please call with any questions/concerns.
[2021-10-27] MEDS ORDERED: ALENDRONATE SODIUM 70 MG TAB PO SCH (06:30)
== END 2021-10-24 14:41 | disposition home health service (06) ==
LOC: 3E 06:09 → ASU 06:09

== ENCOUNTER 2023-06-18 08:52 | Observation (INO) ==
--- NOTE | 2023-04-21 10:30 | PAT Medication Instructions ---
Medication Instructions Date of Service April 21, 2023 Home Medications Medication Instructions Recorded denosumab 60 mg/mL subcutaneous 60 mg subcut .[id number] #1 mL 03/21/23 syringe (Prolia) ascorbic acid (vitamin C) 500 mg tablet 500 mg PO BID calcium carbonate 600 mg calcium (1,500 mg) tablet (Calcium) 600 mg PO QAM cholecalciferol (vitamin D3) 50 mcg (2,000 unit) tablet 2,000 unit PO QAM Bacillus coagulans 250 million cell chewable tablet (Digestive Advantage Probiotic Gummy) 1 cell PO BID diclofenac sodium 1 % topical gel (Voltaren Arthritis Pain) 1 g topical QID PRN prn atorvastatin 10 mg tablet 10 mg PO QPM magnesium oxide 400 mg PO QPM denosumab 60 mg/mL subcutaneous syringe (Prolia) 60 mg subcut .[id number] mecobalamin (vitamin B12) 1,000 mcg lozenges 1,000 mcg PO QAM Continue as directed denosumab 60 mg/mL subcutaneous syringe (Prolia) 60 mg subcut .[id number] ASK your surgeon for instructions diclofenac sodium 1 % topical gel (Voltaren Arthritis Pain) 1 g topical QID PRN prn DO NOT take the morning of surgery ascorbic acid (vitamin C) 500 mg tablet 500 mg PO BID calcium carbonate 600 mg calcium (1,500 mg) tablet (Calcium) 600 mg PO QAM cholecalciferol (vitamin D3) 50 mcg (2,000 unit) tablet 2,000 unit PO QAM Bacillus coagulans 250 million cell chewable tablet (Digestive Advantage Probiotic Gummy) 1 cell PO BID mecobalamin (vitamin B12) 1,000 mcg lozenges 1,000 mcg PO QAM Take evening before surgery ascorbic acid (vitamin C) 500 mg tablet 500 mg PO BID calcium carbonate 600 mg calcium (1,500 mg) tablet (Calcium) 600 mg PO QAM cholecalciferol (vitamin D3) 50 mcg (2,000 unit) tablet 2,000 unit PO QAM Bacillus coagulans 250 million cell chewable tablet (Digestive Advantage Probiotic Gummy) 1 cell PO BID atorvastatin 10 mg tablet 10 mg PO QPM magnesium oxide 400 mg PO QPM OTHERWISE NOTHING TO EAT OR DRINK AFTER MIDNIGHT Other Notes If you have any questions please call us at [phone] or [phone] or [phone] or [phone]
--- NOTE | 2023-04-23 11:18 | Anesthesiology Consultation ---
Date of Service April 23, 2023 Assessment & Plan (1) Encounter for pre-operative examination: - Infectious disease screening: Per assessment on 04/18/23: No known infectious disease contacts or current infectious disease symptoms. No noted recent Covid positive test result. - Outpatient joint assessment: Pt currently scheduled for inpatient pathway. If surgeon requests review for outpatient joint pathway, patient is not recommended candidate for outpatient joint program from anesthesia standpoint. - S/P Right TKA (10/23/21): SAB at L3-4 x1 attempt + regional at [facility] - PCP visit (01/16/23 [place]): "Patient is here for a 6 month recheck to review chronic conditions .She has not had any recent acute illnesses and overall is doing well. She is continuing to exercise each week by walking.. Repeat DEXA scan shows unfortunately she has had a little bit of worsening of her bone loss. She has not had any recent fractures. Continues with calcium and vitamin-D. She has re-established with Endocrinology regarding osteoporosis. now on Fosamax tolerating it well.. History of neutropenia - CBC 01/31 was stable, white count has not significantly worsened.. Has followed with Dr. Troncoso, er tech in the past. He felt that her neutropenia was normal for her. We continue to monitor it yearly. Denies fatigue. History of restless leg syndrome -does not occur nightly but when it does occur she uses an [id number] magnesium cream product which she finds to be very helpful. History of migraines- usually occur only once or twice a year.. Over the last several weeks she has had 3 migraines. They still respond very quickly to ibuprofen and do not linger. She has not had any other red flag warnings. 08/01- increase freq ocular migraines, uses tylenol helpful. sees eye doc routinely 02/01- ocular migraine increased in freq, had MRI, and referred to neuro- plan repeat MRI. Has not had MRI since seeing neurology. She is taking magnesium and B12 supplement hx of UTI - patient has not had any UTI symptoms recently, and she has had no problems since she changed her soap to unscented/for sensitive skin" > 6 month f/u recommended. Chart Review Chart Review: Acceptable Risk for Surgery and Patient seen in Pre Admission Testing Teaching & Discussion Pre-Anesthesia Teaching/Discussion Notes: Instructed NPO after midnight before surgery,except medications with 15 cc of water. Medication instructions provided according to the PAT guidelines. History Surgery Operation Date: 05/20/23 07:15 Proposed Procedures p Left Total Knee Arthroplasty - Matthew Smith DO Height/Weight Height: 5 ft 4.5 in Weight: 66 kg Allergies Allergy/AdvReac Type Severity Reaction Status Date / Time codeine AdvReac Intermediate Flu-like Verified 04/18/23 10:13 reaction aspirin AdvReac Mild Nose bleed Verified 04/18/23 10:13 Medications Home Medications Medication Instructions Recorded Confirmed Last Taken ascorbic acid (vitamin C) 500 mg 500 mg PO BID 12/31/18 04/18/23 10/22/21 12:00 tablet calcium carbonate 600 mg calcium 600 mg PO QAM 02/06/21 04/18/23 10/22/21 17:00 (1,500 mg) tablet (Calcium) cholecalciferol (vitamin D3) 50 2,000 unit PO QAM 02/27/22 04/18/23 Unknown mcg (2,000 unit) tablet Bacillus coagulans 250 million 1 cell PO BID 07/15/22 04/18/23 Unknown cell chewable tablet (Digestive Advantage Probiotic Gummy) diclofenac sodium 1 % topical gel 1 g topical QID PRN prn 10/22/22 04/18/23 Unknown (Voltaren Arthritis Pain) atorvastatin 10 mg tablet 10 mg PO QPM 01/03/23 04/18/23 Unknown magnesium oxide 400 mg PO QPM 01/17/23 04/18/23 Unknown denosumab 60 mg/mL subcutaneous 60 mg subcut .[id number] #1 mL 03/21/23 04/18/23 Unknown syringe (Prolia) mecobalamin (vitamin B12) 1,000 1,000 mcg PO QAM 04/18/23 04/18/23 Unknown mcg lozenges Past Medical History Medical History Osteoporosis History of anxiety High cholesterol Borderline Restless leg syndrome Migraine Exercise / Class Metabolic Activity II 4-5 Yardwork/Stairs/Walk up hill (one FS (no CP, no SOB)) Past Family History Family History Sister Colorectal cancer Brother Osteoporosis Vascular abnormality Mother Osteoporosis Heart disease Father Kidney disease Other Breast cancer Coronary heart disease Lymphoma No family history of adverse response to anesthesia Denies family history of Ovarian cancer Prostate cancer Past Surgical History Surgical History History of total knee replacement Right TKA (10/23/21): SAB at L3-4 x1 attempt + regional at [facility] H/O colonoscopy with polypectomy History of cataract surgery R/L Nausea and vomiting after administration of anesthetic agent Hx with tubal ligation 1970s History of gynecologic surgery Uterine septum repair (Congenital uterine didelphys) History of bilateral tubal ligation History of bunionectomy Right foot [place] teeth extracted Past Anesthesia History No Hx of Anesthesia Complications and No Family Hx of Anesthesia Complications History of PONV No Hx of Motion Sickness and History of PONV (Hx nausea postop with tubal ligation ) Social History Smoking Status: Never smoker Do You Dip or Chew Tobacco: No Hx Alcohol Use: Yes Alcohol type: wine alcohol intake frequency: holidays/special occasions only Hx Substance Use: No substance use type: does not use Review of Systems Patient denies chest pain, shortness of breath, dyspnea on exertion, fever, chills, cough, wheezing, palpitations. Physical Exam Vital Signs VITALS BP 125/84 P 64 TEMP 98.2 SP02 98%RA RESP 18 PHYSICAL Full cervical extension range of motion. Full TMJ range of motion. TMD 3 finger breaths Mallampati Score 1 Dentition: several missing teeth (sides) Lungs: clear throughout to auscultation Cardiac: regular rate and rhythm, no murmurs noted Spine: normal Carotid arteries: negative bruit Extremities: no LE edema Lab Results Anesthesia Preop Results Results Anesthesia Widget: WBC 4.56 K/ul (4.8-10.8) L 04/23/23 Hgb 12.9 g/dl (12.0-16.0) 04/23/23 Hct 37.7 % (37.0-47.0) 04/23/23 Plt 203 K/uL (130-400) 04/23/23 Na 136 mmol/L (136-145) 04/23/23 K 4.6 mmol/L (3.5-5.1) 04/23/23 Cl 102 mmol/L (98-107) 04/23/23 CO2 28 mmol/L (21-32) 04/23/23 BUN 20 mg/dl (6-23) 04/23/23 Creat 0.81 mg/dl (0.6-1.2) 04/23/23 Glucose Level 101 mg/dl (70-99(Fasting)) H 04/23/23 PT 10.4 Seconds (9.0-12.0) 04/23/23 PTT 31 Seconds (21-31) 04/23/23 INR 0.9 (0.9-1.1) 04/23/23 HA1c 5.7 % (4.5-5.6) H 04/23/23 Urine Color Yellow 04/23/23 Urine Appearance Clear (Clear) 04/23/23 Urine pH 5.5 (4.5-7.5) 04/23/23 Urine Specific [place] 1.015 (1.000-1.030) 04/23/23 Urine Protein Negative (Negative) 04/23/23 Urine Glucose (UA) Negative (Negative) 04/23/23 Urine Ketones Negative (Negative) 04/23/23 Urine Blood Negative (Negative) 04/23/23 Urine Nitrite Negative (Negative) 04/23/23 Urine Bilirubin Negative (Negative) 04/23/23 Urine Urobilinogen Negative (Negative) 04/23/23 Urine Leukocyte Esterase Negative (Negative) 04/23/23 Blood Type O Positive 04/23/23 Antibody Screen NEGATIVE 04/23/23 Testing Electrocardiogram Date: 04/23/23 SB with sinus arrhythmia at 57bpm. "Otherwise normal ECG" No significant change compared to 09/24/2021 per facilities locator comparison. Chest X-Ray Date: 04/23/23 FINDINGS: Cardiac silhouette is upper limits of normal in size. No pneumothorax, pleural effusion, airspace consolidation or pulmonary edema. Mild hyperinflation with diaphragmatic flattening. Bones appear grossly intact. IMPRESSION: No acute process. Echocardiogram Date: 09/20/12 EF 60-65%. No regional wall motion abnormalities. No LVH. No significant valvular disease. Normal estimated RVSP. Very small pericardial effusion without echocardiographic evidence of tamponade physiology.
--- NOTE | 2023-04-25 08:31 | History & Physical Report ---
Date of Service April 25, 2023 date of surgery: 05/20/23 Procedure: Left Total Knee Arthroplasty Surgeon: Matthew Smith, Assessment & Plan (1) Arthritis of knee, left: Plan: Risks and benefits of procedure discussed in detail today, patient would like to proceed with a Left total knee replacement at [facility] as scheduled. Will place on Xarelto x 1 month post op, f/u 2 weeks post op for routine post-operative care and x-ray, sooner if having any problems. will make arrangements for HHPT at the time of discharge. At this point in time, has failed conservative measures and would like to proceed with surgical intervention. The risks and benefits have been discussed including, but not limited to, risk of infection, nerve injury, stiffness, loss of motion, failure to improve, etc. Reasonable outcomes and options of treatment were discussed. An explanation of appropriate alternatives to the procedure that may be advantageous were discussed and their risks and benefits, as well as the risks and benefits of not proceeding with treatment. I offered to answer any additional inquiries concerning the treatment involved. All the patient's questions were answered. The patient is agreeable, understanding of the treatment plan and alternatives, and wishes to proceed with the treatment plan. History of Present Illness Chief Complaint: left knee pain Primary Care Provider: NIKIA Shelby Fely is a pleasant 78-year-old female who presented for preop evaluation prior to upcoming left total knee arthroplasty. She has a longstanding history of left knee pain which is gradually worsened and is now affecting her daily activities including walking standing stairs. She has undergone previous injections including steroid and viscosupplementation without relief. She tried Tylenol as well as anti-inflammatories, topical Voltaren Gel. At this point t marcelo she has failed conservative measures and wishes to proceed with a left total knee replacement Allergies Allergy/AdvReac Type Severity Reaction Status Date / Time codeine AdvReac Intermediate Flu-like Verified 04/18/23 10:13 reaction aspirin AdvReac Mild Nose bleed Verified 04/18/23 10:13 Home Medications Medication Instructions Recorded Confirmed Type ascorbic acid (vitamin C) 500 mg 500 mg PO BID 12/31/18 04/18/23 History tablet calcium carbonate 600 mg calcium 600 mg PO QAM 02/06/21 04/18/23 History (1,500 mg) tablet (Calcium) cholecalciferol (vitamin D3) 50 2,000 unit PO QAM 02/27/22 04/18/23 History mcg (2,000 unit) tablet Bacillus coagulans 250 million 1 cell PO BID 07/15/22 04/18/23 History cell chewable tablet (Digestive Advantage Probiotic Gummy) diclofenac sodium 1 % topical gel 1 g topical QID PRN prn 10/22/22 04/18/23 History (Voltaren Arthritis Pain) atorvastatin 10 mg tablet 10 mg PO QPM 01/03/23 04/18/23 History magnesium oxide 400 mg PO QPM 01/17/23 04/18/23 History denosumab 60 mg/mL subcutaneous 60 mg subcut .[id number] #1 mL 03/21/23 04/18/23 Rx syringe (Prolia) mecobalamin (vitamin B12) 1,000 1,000 mcg PO QAM 04/18/23 04/18/23 History mcg lozenges Past Med/Surg History Medical History Osteoporosis History of anxiety High cholesterol Borderline Restless leg syndrome Migraine Surgical History History of total knee replacement Right TKA (10/23/21): SAB at L3-4 x1 attempt + regional at [facility] H/O colonoscopy with polypectomy History of cataract surgery R/L Nausea and vomiting after administration of anesthetic agent Hx with tubal ligation 1970s History of gynecologic surgery Uterine septum repair (Congenital uterine didelphys) History of bilateral tubal ligation History of bunionectomy Right foot [place] teeth extracted Family History Sister Colorectal cancer Brother Osteoporosis Vascular abnormality Mother Osteoporosis Heart disease Father Kidney disease Other Breast cancer Coronary heart disease Lymphoma No family history of adverse response to anesthesia Denies family history of Ovarian cancer Prostate cancer Social History Smoking Status: Never smoker Second Hand Exposure: No; Do You Dip or Chew Tobacco: No; Hx Alcohol Use: Yes Alcohol type: wine Hx Substance Use: No Preferred Language: [place] Communication Ability: Effective Hearing Ability: Normal Sanitary Plumber Required: No Beliefs That Will Affect Care: None marital status: Single Current Living Situation: Alone current occupational status: retired How many Children do You have: 1 Feels Safe at Home: Yes Childhood Exposure to Second-Hand Smoke: No Diet: regular caffeine: Yes during the past year weight has: remained stable Dental Care, Regularly: Yes Physical Activity Frequency: Daily Seatbelt Use: always Sunscreen Use: Yes (sometimes) Assistive Devices: Glasses Review of Systems Review of Systems: All systems reviewed & are unremarkable except as noted in HPI & below Constitutional: no fever, no chills and no sweats Respiratory: no cough and no dyspnea Cardiovascular: no chest pain, no dyspnea and no orthopnea Gastrointestinal: no abdominal pain, no nausea and no vomiting Musculoskeletal: as per Subjective / HPI Physical Exam Physical Exam: HT: 5ft 4.5in WT: 66kg Constitutional: WD/WN, vitals as above no acute distress Respiratory: normal respiratory effort, lungs clear to auscultation no respiratory distress, no labored breathing and does not use accessory muscles Cardiovascular: RRR, no murmur, no edema Gastrointestinal (Abdomen): normal bowel sounds, soft, nontender, no hepatosplenomegaly Musculoskeletal: Knee: + knee abnormal to inspection (LEFT KNEE), + effusion (+1 effusion), + limited ROM of knee (ROM 0/3/110), + knee ROM with crepitation, + joint line tenderness (medial joint line) and + Jimmie's sign positive; no deformity, no skin erythema, no ecchymosis, no valgus laxity, no varus laxity, anterior drawer test negative, Boris's sign negative and pivot shift test negative Results & Data Results & Data Diagnostic Findings Left Knee X-ray: left knee series confirm advanced degenerative changes to the left knee, greatest medial compartments and patellofemoral joint, showing joint space narrowing, osteophyte formation and subchondral sclerosis. no acute bony pathology noted.
--- NOTE | 2023-05-20 09:21 | History & Physical Report ---
Date of Service May 20, 2023 date of surgery: 06/18/23 Procedure: Left Total Knee Arthroplasty Surgeon: Matthew Smith, Assessment & Plan (1) Arthritis of knee, left: Plan: Risks and benefits of procedure discussed in detail today, patient would like to proceed with a Left total knee replacement at [facility] as scheduled. Will place on Xarelto x 1 month post op, f/u 2 weeks post op for routine post-operative care and x-ray, sooner if having any problems. will make arrangements for HHPT at the time of discharge. At this point in time, has failed conservative measures and would like to proceed with surgical intervention. The risks and benefits have been discussed including, but not limited to, risk of infection, nerve injury, stiffness, loss of motion, failure to improve, etc. Reasonable outcomes and options of treatment were discussed. An explanation of appropriate alternatives to the procedure that may be advantageous were discussed and their risks and benefits, as well as the risks and benefits of not proceeding with treatment. I offered to answer any additional inquiries concerning the treatment involved. All the patient's questions were answered. The patient is agreeable, understanding of the treatment plan and alternatives, and wishes to proceed with the treatment plan. History of Present Illness Chief Complaint: left knee pain Primary Care Provider: NIKIA Shelby Fely is a pleasant 78-year-old female who presented for preop evaluation prior to upcoming left total knee arthroplasty. She has a longstanding history of left knee pain which is gradually worsened and is now affecting her daily activities including walking standing stairs. She has undergone previous injections including steroid and viscosupplementation without relief. She tried Tylenol as well as anti-inflammatories, topical Voltaren Gel. At this point ti me she has failed conservative measures and wishes to proceed with a left total knee replacement Allergies Allergy/AdvReac Type Severity Reaction Status Date / Time codeine AdvReac Intermediate Flu-like Verified 04/18/23 10:13 reaction aspirin AdvReac Mild Nose bleed Verified 04/18/23 10:13 Home Medications Medication Instructions Recorded Confirmed Type ascorbic acid (vitamin C) 500 mg 500 mg PO BID 12/31/18 04/18/23 History tablet calcium carbonate 600 mg calcium 600 mg PO QAM 02/06/21 04/18/23 History (1,500 mg) tablet (Calcium) cholecalciferol (vitamin D3) 50 2,000 unit PO QAM 02/27/22 04/18/23 History mcg (2,000 unit) tablet Bacillus coagulans 250 million 1 cell PO BID 07/15/22 04/18/23 History cell chewable tablet (Digestive Advantage Probiotic Gummy) diclofenac sodium 1 % topical gel 1 g topical QID PRN prn 10/22/22 04/18/23 History (Voltaren Arthritis Pain) atorvastatin 10 mg tablet 10 mg PO QPM 01/03/23 04/18/23 History magnesium oxide 400 mg PO QPM 01/17/23 04/18/23 History denosumab 60 mg/mL subcutaneous 60 mg subcut .[id number] #1 mL 03/21/23 04/18/23 Rx syringe (Prolia) mecobalamin (vitamin B12) 1,000 1,000 mcg PO QAM 04/18/23 04/18/23 History mcg lozenges Past Med/Surg History Medical History Osteoporosis History of anxiety High cholesterol Borderline Restless leg syndrome Migraine Surgical History History of total knee replacement Right TKA (10/23/21): SAB at L3-4 x1 attempt + regional at [facility] H/O colonoscopy with polypectomy History of cataract surgery R/L Nausea and vomiting after administration of anesthetic agent Hx with tubal ligation 1970s History of gynecologic surgery Uterine septum repair (Congenital uterine didelphys) History of bilateral tubal ligation History of bunionectomy Right foot [place] teeth extracted Family History Sister Colorectal cancer Brother Osteoporosis Vascular abnormality Mother Osteoporosis Heart disease Father Kidney disease Other Breast cancer Coronary heart disease Lymphoma No family history of adverse response to anesthesia Denies family history of Ovarian cancer Prostate cancer Social History Smoking Status: Never smoker Second Hand Exposure: No; Do You Dip or Chew Tobacco: No; Tobacco Cessation Education Requested by Patient: No Hx Alcohol Use: Yes Alcohol type: wine Hx Substance Use: No Preferred Language: Slovenian Communication Ability: Effective Hearing Ability: Normal Rock Loader Required: No Beliefs That Will Affect Care: None marital status: Single Current Living Situation: Alone current occupational status: retired How many Children do You have: 1 Other Information That Helps Us Care for You: No Feels Safe at Home: Yes Safety Concerns: Feels Safe At This Time Childhood Exposure to Second-Hand Smoke: No Diet: regular caffeine: Yes during the past year weight has: remained stable Dental Care, Regularly: Yes Physical Activity Frequency: Daily Seatbelt Use: always Sunscreen Use: Yes (sometimes) Assistive Devices: Glasses Review of Systems Constitutional: no fever, no chills and no sweats Respiratory: no cough and no dyspnea Cardiovascular: no chest pain, no dyspnea and no orthopnea Gastrointestinal: no abdominal pain, no nausea and no vomiting Musculoskeletal: as per Subjective / HPI Physical Exam Physical Exam: HT: 5ft 4.5in WT: 66kg Constitutional: WD/WN, vitals as above no acute distress Respiratory: normal respiratory effort, lungs clear to auscultation no respiratory distress, no labored breathing and does not use accessory muscles Cardiovascular: RRR, no murmur, no edema Gastrointestinal (Abdomen): normal bowel sounds, soft, nontender, no hepatosplenomegaly Musculoskeletal: Knee: + knee abnormal to inspection (LEFT KNEE), + effusion (+1 effusion), + limited ROM of knee (ROM 0/3/110), + knee ROM with crepitation, + joint line tenderness (medial joint line) and + Jimmie's sign positive; no deformity, no skin erythema, no ecchymosis, no valgus laxity, no varus laxity, anterior drawer test negative, Boris's sign negative and pivot shift test negative Results & Data Results & Data Diagnostic Findings Left Knee X-ray: left knee series confirm advanced degenerative changes to the left knee, greatest medial compartments and patellofemoral joint, showing joint space narrowing, osteophyte formation and subchondral sclerosis. no acute bony pathology noted.
[~2023-06-18 08:52] MED LIST changes: -ACETAMINOPHEN 500 MG TAB PO SCH; +BUPIVACAINE 0.25% PF 30 ML VIAL ONE; +BUPIVACAINE 0.5 % 5 MG/1 ML PF 10ML VIAL ONE; -CeleBREX 200 MG CAP PO SCH; +DEXAMETHASONE SOD INJ 4 MG/ML VIAL ONE; -FAMOTIDINE 20 MG TAB PO SCH; -GABAPENTIN 300 MG CAP PO SCH; +GLYCOPYRROLATE 0.2 MG/ML VIAL ONE; +LIDOCAINE 2% 2 ML VIAL/AMP(20MG/ML) INFIL ONE; -LR 500ML BOLUS, THEN 15ML/HR IV SCH; -METOCLOPRAMIDE HCL 10 MG TABLET PO SCH; +MIDAZOLAM HCL 1 MG/ML 2ML VIAL ONE; +ONDANSETRON INJ 2 MG/ML 2 ML VIAL ONE; +PROPOFOL IV EMULSION 10 MG/ML 20 ML VIAL IV ONE; -ROPIVACAINE 0.5% HCL/PF 150 MG, BUPIVACAINE 0.75% MPF 20 ML, EPINEPHrine 30MG/30ML (OR ... INFIL SCH; -TRANEXAMIC ACID 1,000 MG **IV Intra-op IV SCH; -TRANEXAMIC ACID 1,000 MG **IV Pre-op IV SCH; -ceFAZolin 2000MG 2,000 MG/15 ML SYR IV SCH; -dexAMETHasone 4 MG TAB PO SCH; +fentaNYL citrate PF 100 MCG/2 ML VIAL ONE
[2023-06-18] MEDS: LR 500ML BOLUS, THEN 15ML/HR IV SCH (09:39)
[2023-06-18] MEDS: ACETAMINOPHEN 500 MG TAB PO SCH ×2 (09:39→20:47)
[2023-06-18] MEDS: LR 60ML/HR IV SCH (09:39)
[2023-06-18] MEDS: CeleBREX 200 MG CAP PO SCH (09:40)
[2023-06-18] MEDS: GABAPENTIN 300 MG CAP PO SCH (09:41)
[2023-06-18] MEDS: FAMOTIDINE 20 MG TAB PO SCH (09:42)
[2023-06-18] MEDS ORDERED: fentaNYL citrate PF 100 MCG/2 ML VIAL IV PRN (09:58)
[2023-06-18] MEDS ORDERED: ONDANSETRON INJ 2 MG/ML 2 ML VIAL IV PRN ×2 (09:58→15:23)
[2023-06-18] MEDS ORDERED: ATROPINE SULFATE 0.1 MG/ML 10ML SYR IV PRN (09:58)
[2023-06-18] MEDS ORDERED: ePHEDrine sulfate 50 MG/ML AMP IV PRN (09:58)
--- NOTE | 2023-06-18 09:59 | History & Physical Bridge Note ---
Date of Service June 18, 2023 History & Physical Bridge Note I have examined the patient, reviewed the History & Physical and in the interval since the performance of the History & Physical I have noted the following changes of clinical significance: no changes noted
[2023-06-18] MEDS: TRANEXAMIC ACID 1,000 MG **IV Pre-op IV SCH (10:53)
[2023-06-18] MEDS: ceFAZolin 2000MG 2,000 MG/15 ML SYR IV ONE (11:07)
[2023-06-18] MEDS: ORTHO JOINT ANESTHETIC ONE (11:59)
[2023-06-18] MEDS: ROPIV 0.5% 246mg, Ketorolac 30mg, EPINEPHrine 0.5mg in NSS INFIL SCH (11:59)
[2023-06-18] MEDS: TRANEXAMIC ACID 1,000 MG **IV Intra-op IV SCH (12:11)
--- NOTE | 2023-06-18 12:13 | Operative Report ---
Post Operative Report Pre & Post Diagnosis Operation Date: 06/18/23 11:00 Pre-Op Diagnosis: Left knee osteoarthritis. Post-OpUtilizin Left knee osteoarthritis. I identified the patient and participated in the time-out.: Yes Procedure Operation Date: 06/18/23 11:00 Actual Procedures p Left Total Knee Arthroplasty(Left) Utilizing [employer] journey 2 patient-matched total knee arthroplasty size femur 5 tibia 3 poly 12 patella 29 kerry - Matthew Smith DO Surgeon Matthew Smith DO Emergency Doctor Felix JOSHI Estimated Blood Loss 5 Findings Consistent with Post-Op Diagnosis Patient presents with severe end-stage tricompartmental degenerative joint disease with 5 5 degrees of hyperextension and valgus alignment of approximately 8 degrees eburnated [id number] marginal osteophytes subchondral sclerosis Specimens Bone and cartilage Drains Medium bore Hemovac Anesthesia Type MAC Spinal Regional Complications none Disposition Accompanied Patient To Recovery: No Disposition: Recovery Room Indications Patient presents with severe end-stage DJD with valgus alignment hyperextension to the left knee after failed attempted conservative management occluding physical therapy anti-inflammatories relative rest activity modification corticosteroid injection and viscosupplementation's. She undergone a right total knee arthroplasty presents today for left total knee arthroplasty Description of Procedure After proper prepping and draping of the left lower extremity anterior midline incision was made over the region of the extensor extensor mechanism after meticulous hemostasis was obtained and maintained in subcutaneous tissues a medial parapatellar incision was made The patella was subluxed lateralward the medial lateral gutter were cleaned from any hypertrophic synovitis and scar tissue of the distal femoral block was placed and the distal femoral osteotomy cut was made subsequently the chamfers anterior and posterior osteotomy cuts were made utilizing the 4-in-1 block the tibia was subsequently subluxed anteriorward medial and ateral meniscal remnants were excised in their entirety remnants of the anterior and posterior cruciate ligaments were excised in their entirety excellent exposure of the proximal tibia was obtained the tibial osteotomy guide was placed on the proximal tibial osteotomy cut was made once again the knee was irrigated with copious amounts of sterile saline solution the patella was subsequently everted lateralward thickened scar tissue around the patella was removed the patella was subsequently cut utilizing a freehand technique and was drilled prepared for final preparation and placement of patella socially flexion-extension gaps were checked and the equal and symmetric trials were placed to the appropriate femoral and tibial trials with poly-spacer being placed for equal flexion and extension gaps and full range of motion including extension to 0 and flexion to 140 the trial components after having been taken to recovery range of motion was subsequently removed meticulous hemostasis was obtained and maintained subsequently a knee block injection of joint cocktail including ropivacaine 0.5% 150 mg. Bupivacaine 0.5% epinephrine 1-200,030 mL's toradol 30 mg dexamethasone 4 mg ketamine 10 mg clonidine 100 micrograms normal saline solution 30 mg was infiltrated into the soft tissues of the posterior knee medial lateral gutters and periosteal synovium special attention was paid to protect neurovascular structures at all times subsequently trial components having been removed the knee was irrigated with sterile saline solution. debris was removed the proximal tibia was subsequently prepared and was made ready for the placement of the tibial component tibial component was also cemented and tamped into position the femoral component was subsequently placed and cemented in the position the patellar component was subsequently cemented in position because hemostasis once again obtained and maintained wound having been thoroughly irrigated with debridement and debridement lavage was performed as well as a medial parapatellar incision closed with #1 Vicryl in interrupted fashion subcutaneous was closed with #2 Vicryl skin was closed with skin clips. PA-C was necessary for prepping and drapping as well as wound closure of deep fascia Sub cutaneous tissue and skin and was necessary for the case. A sterile compressive dressing was placed patient was taken to recovery in stable condition of report dictated by Luis I attest to the content of the Intraoperative Record and any orders documented therein. Any exceptions are noted below.Due to the complex nature of the procedure, the entire surgery was performed with the operational assistance of Felix JOSHI The land surveyor assistant, under direct supervision, was involved in the actual performance of all aspects of the surgical procedure including hemostasis, tissue retraction and incision, instrument management, patient positioning, and wound closure. I attest to the content of the Intraoperative Record and any orders documented therein. Any exceptions are noted below.
--- NOTE | 2023-06-18 13:40 | XRay Report ---
LEFT KNEE 2 VIEWS History: Left total knee arthroplasty. Degenerative arthritis. Postop. FINDINGS: The patient is status post a left total knee arthroplasty. The hardware is intact. No fract ure or dislocation. Surgical drains are in place. IMPRESSION: Left total knee arthroplasty. No evidence for hardware complication. ACT 112: Negative or not required by law. Electronically signed by: Jose Roberto M.D. 06/18/2023 1:39 PM
--- NOTE | 2023-06-18 14:16 | Anesthesiology Progress Note ---
Date of Service June 18, 2023 Anesthesia Post Procedure Vital Signs Vital Signs: Temp Pulse Resp BP Pulse Ox O2 Del Method O2 Flow Rate 06/18/23 14:10 60 16 106/72 97 Nasal Cannula 2 06/18/23 13:55 60 16 102/59 L 97 Nasal Cannula 2 06/18/23 13:45 36.3 C L 62 16 108/57 L 96 Nasal Cannula 2 06/18/23 13:35 60 16 111/59 L 95 Room Air 06/18/23 13:25 75 18 108/63 94 Room Air 06/18/23 13:15 75 16 113/66 94 Room Air 06/18/23 13:05 70 16 108/57 L 96 Oxymask 3 06/18/23 12:55 36.6 C 82 18 116/57 L 96 Oxymask 6 06/18/23 09:26 36.6 C 68 18 157/81 H 97 Room Air Notes Mental Status: alert / awake / arousable Patient Amnestic to Procedure: Yes Nausea / Vomiting: adequately controlled Pain: adequately controlled Airway Patency, RR, SpO2: stable & adequate BP & HR: stable & adequate Hydration State: stable & adequate Neuraxial Anesthesia: was administered and sensory block is resolving Anesthetic Complications: no major complications apparent
[2023-06-18] MEDS ORDERED: bisacodyL 10 MG SUPP PR PRN (15:23)
[2023-06-18] MEDS ORDERED: MAGNESIUM HYDROXIDE SUSP 30 ML UDC PO PRN (15:23)
[2023-06-18] MEDS ORDERED: diphenhydrAMINE 50 MG/ML VIAL IV PRN (15:23)
[2023-06-18] MEDS ORDERED: NALOXONE HCL 0.4 MG/1 ML VIAL/CARP IV PRN (15:23)
[2023-06-18] MEDS ORDERED: HYDROmorphone INJ 0.5 MG/0.5 ML SYR IV PRN (15:23)
[2023-06-18] MEDS: SODIUM CHLORIDE 0.9% 1,000 ML IV SCH (15:34)
[2023-06-18] MEDS: ASCORBIC ACID 500 MG TAB PO SCH (20:47)
[2023-06-18] MEDS: ATORVASTATIN 10 MG TAB PO SCH (20:48)
[2023-06-18] MEDS: MAGNESIUM OXIDE 400 MG TAB PO SCH (20:48)
[2023-06-18] MEDS: ceFAZolin 1000MG 1,000 MG/7.5 ML SYR IV SCH (20:48)
[2023-06-18] MEDS: SENNA 8.6 MG TAB PO SCH (20:48)
[2023-06-18] MEDS: DOCUSATE SODIUM 100 MG CAP PO SCH (20:48)
[2023-06-18] MEDS: oxyCODONE HCL IR 5 MG TAB (IMMEDIATE RELEASE) PO PRN (20:50)
--- NOTE | 2023-06-19 07:03 | Orthopedic Progress Note ---
Date of Service June 19, 2023 Assessment & Plan (1) History of total left knee replacement: Plan: POD #1 s/p left TKA pt/ot dvt proph with KAVIN/SCD/Xarelto plan for d/c home with HHPT when stable Admission and Anticipated Discharge Date Admission Date: June 18, 2023 Subjective POD #1 s/p Left TKA Review of Systems Constitutional: no fever, no chills and no sweats Respiratory: no cough and no dyspnea Cardiovascular: no chest pain and no dyspnea Gastrointestinal: no abdominal pain, no nausea and no vomiting Physical Exam Physical Exam: Vital Signs Temp 36.7 C 06/19/23 03:00 Pulse 69 06/19/23 03:00 Resp 16 06/19/23 03:00 BP 116/61 06/19/23 03:00 Pulse Ox 95 06/19/23 03:00 O2 Del Method Room Air 06/19/23 03:00 O2 Flow Rate 1 06/18/23 15:00 Intake & Output 06/18/23 06/19/23 06/19/23 18:59 06:59 18:59 Intake Total 1700 / 3200 1500 / 3200 Output Total 85 / 1060 975 / 1060 Balance 1615 / 2140 525 / 2140 Weight 65.9 kg Intake: IV 200 / 1200 1000 / 1200 Lactated Ringe r's 1,000 ml @ 15 0 / 0 mls/hr IV .Q24 H JOHNNIE Rx#: [id number] Sodium Chlorid e 0.9% 1,000 ml @ 1000 / 1000 100 mls/hr IV .Q10H JOHNNIE Rx#: [id number] Tranexamic Aci d / 0.7% NaCl 1, 200 / 200 000 mg In 100 ml @ 600 mls/hr IV TODAY@0600 JOHNNIE Rx#:[id number] IV Perioperative 1500 / 1500 Oral 500 / 500 Output: Urine 850 / 850 Estimated Blood Loss 5 / 5 Drain Output 80 / 205 125 / 205 Left Knee Hemo vac 80 / 205 125 / 205 Other: Weight Measureme nt Method Standing Scale Musculoskeletal: Left Leg: NVDI, calf SNT, negative agus sign. DP palpable, able to wiggle toes/ankle movement without difficulty. dressing clean dry and intact. Results & Data Vital Signs (Past 12 Hours) Vital Signs Temp Pulse Resp BP Pulse Ox O2 Del Method 06/19/23 03:00 36.7 C 69 16 116/61 95 Room Air 06/18/23 23:00 36.7 C 60 16 109/63 94 Room Air 06/18/23 19:15 Room Air Laboratory Results Impressions Knee X-Ray 06/18/23 12:59 LEFT KNEE 2 VIEWS History: Left total knee arthroplasty. Degenerative arthritis. Postop. FINDINGS: The patient is status post a left total knee arthroplasty. The hardware is intact. No fracture or dislocation. Surgical drains are in place. IMPRESSION: Left total knee arthroplasty. No evidence for hardware complication. ACT 112: Negative or not required by law. Electronically signed by: Jose Roberto M.D. 06/18/2023 1:39 PM
[2023-06-19 07:14] LABS: Hematocrit (blood only) 32.7 % (37.0-47.0); Hemoglobin 10.8 g/dl (12.0-16.0); Mean Corpuscular Hemoglobin 29.5 pg (25.0-34.0); Mean Corpuscular Volume 89.3 fL (80.0-100.0); Mean Platelet Volume 10.3 fL (9.4-12.4); Platelet Count 181 K/uL (130-400); RDW Coefficient of Variation 13.4 % (11.5-14.5); RDW Standard Deviation 44.1 fL (36.4-46.3); Red Blood Count 3.66 M/uL (4.20-5.40); White Blood Count 12.39 K/ul (4.8-10.8)
[2023-06-19 07:16] LABS: BUN Creatinine Ratio 25.3 (10-20); Est GFR (African American) 78.8 ml/min; Potassium 4.1 mmol/L (3.5-5.1)
[2023-06-19] MEDS: RIVAROXABAN 10 MG TABLET PO SCH (08:30)
[2023-06-19] MEDS: MULTIVITAMIN TAB PO SCH (08:30)
[2023-06-19] MEDS: CHOLECALCIFEROL 25 MCG (1000 UNITS) TAB PO SCH (08:31)
--- NOTE | 2023-06-19 12:43 | Discharge Summary ---
Date of Service June 19, 2023 Admission HPI Per Admitting Provider Alvino is a pleasant 78-year-old female who presented for preop evaluation prior to upcoming left total knee arthroplasty. She has a longstanding history of left knee pain which is gradually worsened and is now affecting her daily activities including walking standing stairs. She has undergone previous injections including steroid and viscosupplementation without relief. She tried Tylenol as well as anti-inflammatories, topical Voltaren Gel. At this point time she has failed conservative measures and wishes to proceed with a left total knee replacement Admission Exam Per Admitting Provider Physical Exam: HT: 5ft 4.5in WT: 66kg Constitutional: WD/WN, vitals as above no acute distress Respiratory: normal respiratory effort, lungs clear to auscultation no respiratory distress, no labored breathing and does not use accessory muscles Cardiovascular: RRR, no murmur, no edema Gastrointestinal (Abdomen): normal bowel sounds, soft, nontender, no hepatosplenomegaly Musculoskeletal: Knee: + knee abnormal to inspection (LEFT KNEE), + effusion (+1 effusion), + limited ROM of knee (ROM 0/3/110), + knee ROM with crepitation, + joint line tenderness (medial joint line) and + Jimmie's sign positive; no deformity, no skin erythema, no ecchymosis, no valgus laxity, no varus laxity, anterior drawer test negative, Boris's sign negative and pivot shift test neg ative Principal Diagnosis Left Knee Djd Discharge Data Allergies Allergy/AdvReac Type Severity Reaction Status Date / Time codeine AdvReac Intermediate Flu-like Verified 06/18/23 09:19 reaction aspirin AdvReac Mild Nose bleed Verified 06/18/23 09:19 Procedures Performed Operation Date: 06/18/23 11:00 Actual Procedures p Left Total Knee Arthroplasty(Left) - Matthew Garcia DO Ordered Studies 06/18/23 05:00 US - OR guided needle placemen Routine Hospital Course (1) History of total left knee replacement: Patient: ALVINO REARDON Admit Date: 06/18/23 MR#: [id number] Att Phy: Matthew Garcia,D.ODiana Acct ID: [id number] Juliane Phy: Geetha Rawls CRNP Date: 1945 Fam Phy: Age: 78 Location: 3W Sex: F Room/Bed: [facility] cc: ~ *NOTICE TO RECEIVING REPUBLICAN/AGENCY This information is strictly Confidential and protected under [place] law. [place] law prohibits you from making any further disclosure of this information unless further disclosure is expressly permitted by the written consent of the person to whom it pertains or is authorized by law. A general authorization for the release of medical or other information is not sufficient for this purpose. Hospital accepts no responsibility if the information is made available to any other person, INCLUDING THE PATIENT. Date of Service June 19, 2023 Assessment & Plan (1) History of total left knee replacement: Plan: POD #1 s/p left TKA pt/ot dvt proph with KAVIN/SCD/Xarelto plan for d/c home with HHPT when stable Admission and Anticipated Discharge Date Admission Date: June 18, 2023 Subjective POD #1 s/p Left TKA Review of Systems Constitutional: no fever, no chills and no sweats Respiratory: no cough and no dyspnea Cardiovascular: no chest pain and no dyspnea Gastrointestinal: no abdominal pain, no nausea and no vomiting Physical Exam Physical Exam: Vital Signs Temp 36.7 C 06/19/23 03:00 Pulse 69 06/19/23 03:00 Resp 16 06/19/23 03:00 BP 116/61 06/19/23 03:00 Pulse Ox 95 06/19/23 03:00 O2 Del Method Room Air 06/19/23 03:00 O2 Flow Rate 1 06/18/23 15:00 Intake & Output 06/18/23 06/19/23 06/19/23 18:59 06:59 18:59 Intake Total 1700 / 3200 1500 / 3200 Output Total 85 / 1060 975 / 1060 Balance 1615 / 2140 525 / 2140 Weight 65.9 kg Intake: IV 200 / 1200 1000 / 1200 Lactated Ringe r's 1,000 ml @ 15 0 / 0 mls/hr IV .Q24 H JOHNNIE Rx#: [id number] Sodium Chlorid e 0.9% 1,000 ml @ 1000 / 1000 100 mls/hr IV .Q10H JOHNNIE Rx#: [id number] Tranexamic Aci d / 0.7% NaCl 1, 200 / 200 000 mg In 100 ml @ 600 mls/hr IV TODAY@0600 JOHNNIE Rx#:[id number] IV Perioperative 1500 / 1500 Oral 500 / 500 Output: Urine 850 / 850 Estimated Blood Loss 5 / 5 Drain Output 125 Left Knee Hemo vac 125 / Other: Weight Measureme nt Method Standing Scale Musculoskeletal: Left Leg: NVDI, calf SNT, negative agus sign. DP palpable, able to wiggle toes/ankle movement without difficulty. dressing clean dry and intact. Results & Data Vital Signs (Past 12 Hours) Vital Signs Temp Pulse Resp BP Pulse Ox O2 Del Method 06/19/23 03:00 36.7 C 69 16 116/61 95 Room Air 06/18/23 23:00 36.7 C 60 16 109/63 94 Room Air 06/18/23 19:15 Room Air Laboratory Results Impressions Knee X-Ray 06/18/23 12:59 LEFT KNEE 2 VIEWS History: Left total knee arthroplasty. Degenerative arthritis. Postop. FINDINGS: The patient is status post a left total knee arthroplasty. The hardware is intact. No fracture or dislocation. Surgical drains are in place. IMPRESSION: Left total knee arthroplasty. No evidence for hardware complication. ACT 112: Negative or not required by law. Electronically signed by: Jose Roberto M.D. 06/18/2023 1:39 PM Signed By: <Electronically signed by Bryce Cuevas PA-C> 06/19/23 0702 <Electronically signed by Yousuf Josue MD> 06/19/23 0711 Created: 06/19/23 0701 Total Time Total Time Spent Total Time Spent (In Minutes): 5 Discharge Plan Discharge Items Patient Disposition: Home - Home Health Services Reason For Visit: Left Knee Osteoarthritis Discharge Diagnosis: Left knee osteoarthritis Activity: Per Instructions section Non-emergency contact: Surgeon Call non-emergency contact if: you have any medication questions, your pain is not controlled, your temperature is above 101.5, your wound has increased redness and your wound has increased drainage Follow-up/Referrals: Geetha Rawls CRNP [Primary Care Provider] - Matthew Garcia, [Surgeon] - ( follow-up with Dr. Garcia or his PA in 2 weeks from the day of surgery for your first postoperative visit.) Diet: Regular Addtl Attending Provider Instructions: ACTIVITY RECOMMENDATIONS: SELF CARE INSTRUCTIONS AFTER TOTAL KNEE REPLACEMENT A. You may need to continue a physical therapy program after discharge from the hospital. There are several options available to you. Your doctor will assist you in selecting the best one for you. 1. An out-patient facility 2 to 3 times a week for therapy or home therapy. 2. Continue working on all exercises taught to you in the hospital. Your goals should be to increase bending of your knee to 90 degrees and beyond and to fully straighten your knee. B. You may progress at your own pace from walking with a walker or crutches to a cane; then to no assistive devices. C. Make walking a part of your daily routine. Be up as much as comfortable with rest periods throughout the day. Rest with leg elevation is very important. Use the ice wrap frequently for the first 3-4 weeks. D. There are no restrictions on activities. You may ride in a car, shop, participate in sexual assault counsellor and all social activities. E. Wear the long elastic stockings (KAVIN hose) 20 hours a day for 2 weeks after surgery. They can be removed several times a day for laundering and for a bath. F. You may shower, no tub baths until cleared by your doctor. SPECIAL CARE INSTRUCTIONS: VERY IMPORTANT TO READ AND REVIEW A. There are a few signs you need to watch for after you are home. Call [facility] if you notice any of the followin. Increased severe knee pain. Some pain is expected especially when you exercise. 2. Increased swelling in your leg or knee; pain or swelling of the calf muscle in either lower leg. 3. Any fluid drainage from the incision. 4. Shortness of breath or chest pain. B. Please call [facility] at if you have any concerns or questions about your operation or recovery. The doctor or his nurse will return your call promptly. C. You must take antibiotics before dental work, bladder, bowel or other surgery. Your doctor will provide you with a permanent care to carry describing this precaution. IMPORTANT: * REMEMBER TO TAKE XARELTO 10MG ONCE DAILY FOR 4 WEEKS UNLESS OTHERWISE DIRECTED. THIS IS YOUR BLOOD THINNER. * CALL IF INCREASED PAIN, REDNESS, DRAINAGE OR FEVER GREATER THAT 101. * WEAR KAVIN HOSE 20 HOURS PER DAY FOR 2 WEEKS. * SOHA Dressing - This is a large suction dressing covering your incision. This will help pull any excess drainage from the wound and allow your incision to heal properly. You may shower with this if you can keep the unit outside of the shower. If any bleeding or leakage is noted please call your doctor's office. This will remain on your incision for 7 days and then should be removed. This can be done yourself or by the home nursing staff if applicable. The entire unit is disposable once removed. Once removed, keep incision clean and dry. If redness or drainage is noted, please call your surgeon. . *DERMABOND Prineo- This is a mesh tape dressing that is covered with glue. It should remain in place until the incision is properly healed, usually 10-14 days. This dressing is designed to naturally slough off. You may trim the excess mesh tape as it peels off. Incision may be briefly wet in a shower. Dry immediately by blotting with a clean, dry towel. Do not bath or swim until instructed by your doctor. Do not scratch, rub, or pick at the dressing. Do not apply any topical ointments or lotions until dressing is completely removed and/or instructed by your doctor. There may be a small piece of suture material at one end of your incision. Do not pull or trim this. If it is bothersome or catching on clothing, you may cover it with a band-aid. FOLLOW UP VISIT: If appointment is not already scheduled: Please call [facility] to make a follow-up appointment for 2 weeks after your surgery at . Stand-Alone Forms: My [facility] Medications and DC Order Prescriptions: New Xarelto 10 mg Tablet 10 mg PO DAILY 14 Days Qty: 14 0RF acetaminophen 500 mg tablet 1,000 mg PO Q8 21 Days Qty: 126 0RF cefadroxil 500 mg capsule 500 mg PO BID 14 Days Qty: 28 0RF oxycodone 5 mg tablet 5 - 10 mg PO Q6H PRN (Reason: pain) Qty: 30 0RF Rx Instructions: ongoing therapy, supervising dr landy garcia. max 6 tabs in 24 hours, date of surgery 06/18/23 Continued cholecalciferol (vitamin D3) 50 mcg (2,000 unit) tablet 2,000 unit PO QAM atorvastatin 10 mg tablet 10 mg PO QPM Qty: 90 3RF Dose Instruction: TAKE 1 TABLET BY MOUTH DAILY. Rx Instructions: TAKE 1 TABLET BY MOUTH DAILY. daily in the evening; magnesium oxide 400 mg magnesium capsule 400 mg PO QPM Digestive Advantage Prob Gummy 250 million cell tablet,chewable 1 cell PO BID Rx Instructions: 1 chewable tablet orally BID; Prolia 60 mg/mL syringe 60 mg subcut .[id number] Qty: 1 1RF Rx Instructions: due october 06 ascorbic acid (vitamin C) 500 mg tablet 500 mg PO BID calcium carbonate [Calcium 600] 600 mg calcium (1,500 mg) tablet 600 mg PO QAM Rx Instructions: 630 mg PO daily; mecobalamin (vitamin B12) 1,000 mcg lozenge 1,000 mcg PO QAM Rx Instructions: allow to dissolve in mouth OR may chew lightly before swallowing Discontinued diclofenac sodium [Voltaren Arthritis Pain] 1 % gel 1 g topical QID PRN (Reason: prn) Rx Instructions: apply to single elbow, wrist or hand; for hand includes palm/fingers/back of hand acetaminophen 500 mg Tablet 500 mg PO Q6H PRN (Reason: Pain) ibuprofen 400 mg Tablet 400 mg PO Q6H Admission Data Admit Date/Time: 06/18/23 12:59 Attending Provider: Matthew Garcia Admit Provider: Matthew Garcia Primary Care Provider: Geetha Rawls Other Providers: [facility],Home Health; [facility] Other Interventions: Discharge Summary Assessment (RN) Last Done: 06/19/23 12:18
== END 2023-06-19 14:17 | disposition home health service (06) ==
LOC: 3W 08:52 → ASU 08:52